=== PATIENT | male | born 1995 | race Caucasian/White ===

== ENCOUNTER 2017-12-26 14:52 | Observation (INO) | payer OTHER ==
--- NOTE | 2017-12-26 15:31 | EDPHY ---
H & P Time Seen by Provider: 12/26/17 15:03 HPI/ROS: CHIEF COMPLAINT: "I feel foggy" HISTORY OF PRESENT ILLNESS: Patient is brought in by his father from his primary care's office. The father says that the patient has been"disengage from [employer]"over the last week. 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 Yesterday the patient wants to "clean himself out"and drink 18 oz of medium chain triglyceride oil at home. The father does say he has had a history of using marijuana for on and off for many years and when he does that he is"susceptible to psychosis"but the patient denies any drug use over the last month. Patient says he just feels slow to respond but denies hallucinations or hearing voices and denies recent drug use. REVIEW OF SYSTEMS: Eye: no change in vision ENT: no sore throat. He lost hearing in his right ear back in May and wears a hearing aid but no changes there. Cardiac: no chest pain or syncope Pulmonary: no cough or SOB Abdomen: Patient is had chronic abdominal pain for at least the last 2-3 years worse in the morning which is unchanged today. Musculoskeletal: no back pain Skin: no rash Neuro: no headache Constitutional: no fever : no urinary symptoms A comprehensive 10 point review of systems is otherwise negative aside from elements mentioned in the history of present illness. PAST MEDICAL HISTORY: Negative Family history: History of schizophrenia in his mother's brother Social history: Occasional marijuana use. General Appearance: Patient is alert and cooperative Eyes: No scleral icterus. Pupils equal and reactive extraocular motion intact. ENT, Mouth: Normal mucous membranes. No tongue laceration or abrasion, hearing aid in the right ear. Respiratory: Normal respiratory effort, breath sounds equal, lungs are clear to auscultation. Cardiovascular: Regular rate and rhythm. Gastrointestinal: Abdomen is soft and non tender. Neurological: Alert, face symmetric, normal motor and sensory in extremities. Patellar reflexes 1+ and symmetric, toes downgoing bilaterally, no clonus. Is able to respond appropriately to questions but does seem a bit slow. Not aphasic. Skin: Warm and dry, no rashes. Musculoskeletal: No peripheral edema. Neck supple. Psychiatric: Flat affect. Denies hallucinations. Emergency Department course/MDM: CBC, chemistries, ethanol and drug screen. Noncontrast CT head with probable recommended lumbar puncture if negative. If all tests are negative recommend psychiatric evaluation. 1635: Results discussed with patient father and stepmother, LP discussed and consented. Neurology consulted. 165: Lumbar puncture completed, IV fluids infusing. 170: Discussed with neurology Wheatley. 1944: Re-evaluated with parents. Admit for evaluation of encephalopathy, is not acutely psychotic in the emergency department although mental illness as a primary diagnosis is considered and discussed with the parents. Smoking Status: Never smoked Constitutional: Initial Vital Signs Temperature (C) 36.7 C 12/26/17 14:53 Heart Rate 88 12/26/17 14:53 Respiratory Rate 16 12/26/17 14:53 Blood Pressure 129/78 H 12/26/17 14:53 O2 Sat (%) 97 12/26/17 14:53 O2 Delivery Mode Room Air Allergies/Adverse Reactions: sulfamethoxazole [From Septra] Allergy (Verified 08/07/10 02:16) trimethoprim [From Septra] Allergy (Verified 08/07/10 02:16) Home Medications: Medication Instructions Recorded NK [No Known Home Meds] 12/26/17 Medical Decision Making - Diagnostics Imaging Results: Imaging Impressions Head CT 12/26/17 15:28 Impression: 1. Normal CT brain without contrast. 2. Consider MRI of the brain, if there is continued clinical concern. Findings and recommendations discussed with Emergency Department physician, Facundo Mendoza at 1550 hour, 12/26/2017. Final report concurs with initial preliminary interpretation. normal head Ct per Isuani, 1551 Imaging: Discussed imaging studies w/ calliope player Radiologist Procedures: Procedure: Lumbar puncture. Indication: Altered mental status Risks benefits and alternatives to the procedure were discussed including but not limited to infection, headache, bleeding, and neurologic damage. Consent was obtained. The patient was prepped and draped in the usual sterile fashion. A time out was completed. The entry site was anesthetized with 1% lidocaine and a lumbar puncture was performed with a 23-gauge spinal needle. Approximately 4 mL of clear fluid was obtained. Opening pressure was not obtained. There were no complications. The procedure was performed by myself. Differential Diagnosis: Differential considered including but not limited to schizophrenia, drug or alcohol ingestion, metabolic, ASSISTANT TEACHING PROFESSOR infection, intracranial mass. Consult/Admit Bed Type: [place] [id number] - Data Points Laboratory Results: Laboratory Results 12/26/17 15:40 12/26/17 15:40 12/26/17 12/26/17 12/26/17 16:52 15:40 15:40 WBC RBC Hgb Hct MCV MCH MCHC RDW Plt Count MPV Neut % (Auto) Lymph % (Auto) Green % (Auto) Eos % (Auto) Baso % (Auto) Nucleat RBC Rel Count Absolute Neuts (auto) Absolute Lymphs (auto) Absolute Monos (auto) Absolute Eos (auto) Absolute Basos (auto) Absolute Nucleated RBC Immature Gran % Immature Gran # Sodium 143 mEq/L mEq/L (135-145) Potassium 4.4 mEq/L mEq/L (3.3-5.0) Chloride 106 mEq/L mEq/L (97-110) Carbon Dioxide 19 mEq/l L mEq/l (22-31) Anion Gap 18 mEq/L H mEq/L (8-16) BUN 18 mg/dL mg/dL (7-23) Creatinine 1.1 mg/dL mg/dL (0.7-1.3) Estimated GFR > 60 Glucose 73 mg/dL mg/dL (70-100) Calcium 9.9 mg/dL mg/dL (8.5-10.4) TSH 0.989 uIU/mL uIU/mL (0.465-4.680) CSF Tube Number 4 CSF Appearance CLEAR (CLEAR) CSF Color COLORLESS (COLORLESS) CSF Supernatant COLORLESS (COLORLESS) CSF WBC 0 /mm3 /mm3 (0-5) CSF RBC 1 /mm3 H /mm3 (0-0) CSF Glucose 50 mg/dL mg/dL (50-75) CSF Total Protein 45 mg/dL mg/dL (12-60) Ethyl Alcohol < 10 mg/dL mg/dL (0-10) 12/26/17 15:40 WBC 7.08 10^3/uL 10^3/uL (3.80-9.50) RBC 6.49 10^6/uL H 10^6/uL (4.40-6.38) Hgb 19.2 g/dL H g/dL (13.7-17.5) Hct 55.5 % H % (40.0-51.0) MCV 85.5 fL fL (81.5-99.8) MCH 29.6 pg pg (27.9-34.1) MCHC 34.6 g/dL g/dL (32.4-36.7) RDW 12.4 % % (11.5-15.2) Plt Count 309 10^3/uL 10^3/uL (150-400) MPV 10.2 fL fL (8.7-11.7) Neut % (Auto) 63.8 % % (39.3-74.2) Lymph % (Auto) 27.3 % % (15.0-45.0) Green % (Auto) 6.9 % % (4.5-13.0) Eos % (Auto) 0.7 % % (0.6-7.6) Baso % (Auto) 1.0 % % (0.3-1.7) Nucleat RBC Rel Count 0.0 % % (0.0-0.2) Absolute Neuts (auto) 4.52 10^3/uL 10^3/uL (1.70-6.50) Absolute Lymphs (auto) 1.93 10^3/uL 10^3/uL (1.00-3.00) Absolute Monos (auto) 0.49 10^3/uL 10^3/uL (0.30-0.80) Absolute Eos (auto) 0.05 10^3/uL 10^3/uL (0.03-0.40) Absolute Basos (auto) 0.07 10^3/uL 10^3/uL (0.02-0.10) Absolute Nucleated RBC 0.00 10^3/uL 10^3/uL (0-0.01) Immature Gran % 0.3 % % (0.0-1.1) Immature Gran # 0.02 10^3/uL 10^3/uL (0.00-0.10) Sodium Potassium Chloride Carbon Dioxide Anion Gap BUN Creatinine Estimated GFR Glucose Calcium TSH CSF Tube Number CSF Appearance CSF Color CSF Supernatant CSF WBC CSF RBC CSF Glucose CSF Total Protein Ethyl Alcohol Microbiology Results: MICROBIOLOGY 12/26/17 16:52 Cerebral Spinal Fluid Gram Stain - Final Medications Given: Discontinued Medications Sodium Chloride (Ns) 1,000 mls @ 0 mls/hr IV EDNOW ONE; Wide Open PRN Reason: Protocol Stop: 12/26/17 16:38 Last Admin: 12/26/17 16:39 Dose: 1,000 mls Sodium Chloride (Ns) 1,000 mls @ 0 mls/hr IV EDNOW ONE; Wide Open PRN Reason: Protocol Stop: 12/26/17 16:38 Last Admin: 12/26/17 17:41 Dose: 1,000 mls Departure - Departure Disposition: [facility] Clinical Impression: Encephalopathy acute Condition: Fair
[2017-12-26 16:04] LABS: PLATELET COUNT 309 10^3/uL (150-400)
[2017-12-26] MEDS ORDERED: NS 1,000 ML IV ONE ×2 (16:37)
[2017-12-26] MEDS ORDERED: NS 1,000 ML IV SCH (18:45)
--- NOTE | 2017-12-26 23:15 | PDGENHP ---
History and Physical - Chief Complaint Acute weakness - History of Present Illness Primary care provider: Dr. Jules Escoto HPI: 22-year-old male presenting with acute weakness characterized as generalized by the patient, with associated fatigue and cramping abdominal discomfort and nausea. The patient reports that on the morning of presentation , he awoke with these symptoms, and they came to the attention of his parents who brought him to his primary care provider office. As the etiology of the symptoms was unclear, he was triaged to the emergency department given that the patient's father felt like he was unsteady on his feet, visibly fatigued, and appeared to be cognitively not at his baseline. The patient is unable to articulate any cognitive symptoms, but the patient's father and stepmother insert that the patient appears "foggy", with delayed speech, flat affect, poor responsiveness. When questioned about the symptoms, the patient agrees that he may be experiencing them, but he is unable to further articulate whether they are actually bothering him. His father reports that he experiences poor sleep, although the patient has not taken any medications to attempt to sleep and is unable to articulate anything specific about his sleep habits. He does endorse that he feels somewhat depressed, lb he feels like he is justifiable a so, as he reports that he engages in no pleasurable activities and "sits all day" in his apartment purposelessly. The patient's presenting symptoms do require some delineation. Regarding his cramping abdominal discomfort and nausea, the patient has been experiencing this since age 15. He reports that onset is mostly in the morning, and mostly abates throughout the day. It sometimes affects his oral intake in the morning , but he has not discovered a particular remedy. He is unable to associate with any particular symptoms of diarrhea or constipation, and he does not seem to be particularly plagued by vomiting. He did undergo an abdominal CT in 2009 which was demonstrative of no abnormalities. He has not officially seen a medical provider for a formal workup. Regarding the patient's energy and cognitive status, the patient's father has noted a particular decline over the past several weeks. 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 His father has noted episodes depression, but no suicidal ideation or attempts. These episodes were also self-limited and did not warrant medical attention. The patient has not had any manic episodes. The patient has always been very particular about certain things, such as foods and schedules. He reportedly does better with structure and routine. The patient does use marijuana every few weeks, and his father reports that it "does not agree with him", resulting in significant paranoia. Approximately 4 weeks ago, the patient began experiencing difficulty with his clinical athletic instructor schedule, and began missing some of the classes he was supposed to teach, secondary to was reported as an irregular schedule. The patient also reports that he has had difficulty with yoga secondary to the hearing loss in his right year, which was diagnosed as idiopathic after an extensive workup at [facility] in May of 2017. The patient was reportedly placed on probation at his workplace, and then was eventually let go. After the patient stopped working, he began self isolating in his apartment, reportedly engaging in very minimal activities outside of his apartment space. The patient reports that he naturally feels depressed as a result of having nothing to do, at age 22, and he reports that he just sits in his apartment most of the day. He has been doing so for the past several weeks, and his father reports that he has not been answering his phone calls or e-mail. That being said, prior to the patient's precipitous decline, he had attempted to find work at a local business, and had reportedly been excited about the job prospect. His father reports that this job seemingly did not materialize secondary to the patient losing interest in communicating with the employer or engaging in any additional follow-up. History Information - Allergies/Home Medication List Allergies/Adverse Reactions: sulfamethoxazole [From Septra] Allergy (Verified 08/07/10 02:16) trimethoprim [From Septra] Allergy (Verified 08/07/10 02:16) Home Medications: NK [No Known Home Meds] 12/26/17 [Last Taken Unknown] I have personally reviewed and updated: family history, medical history, social history, surgical history - Past Medical History Additional medical history: Idiopathic hearing loss in his right year May of 2017, underwent extensive evaluation at [facility]. Intermittent episodes of depression. Chronic abdominal pain since age 15. Intermittent polyarthralgias - Surgical History Reports: no pertinent surgical hx - Family History Additional family history: Father reports chronic abdominal symptoms, reports IgA deficiency. 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, recently lost his job and has become self isolated Review of Systems Review of Systems: ROS: 10pt was reviewed & negative except for what was stated in HPI & below Constitutional: Reports: malaise, weakness Muscolosketal: Reports: other (Poly arthralgias) Neurological: Reports: other (Thought blocking, cognitive slowing, depression) Physical Exam Physical Exam: Temp Pulse Resp BP Pulse Ox 36.4 C 54 L 16 117/68 96 12/26/17 21:00 12/26/17 21:00 12/26/17 21:00 12/26/17 21:00 12/26/17 21:00 Constitutional: no apparent distress, appears nourished, not in pain, No uncomfortable Eyes: anicteric sclera, EOMI, other (Appropriately dilated pupils) Ears, Nose, Mouth, Throat: no oral mucosal ulcers, other (Tacky mucous membranes ) Cardiovascular: regular rate and rhythym, no murmur, rub, or gallop, No edema Respiratory: no respiratory distress, no rales or rhonchi, clear to auscultation Gastrointestinal: normoactive bowel sounds, soft, non-tender abdomen, no palpable masses Genitourinary: no bladder fullness, no bladder tenderness Skin: warm, No abrasion, No erythema, No rash Musculoskeletal: full muscle strength, no muscle tenderness, normal joint ROM, no joint effusions Neurologic: AAOx3, sensation intact bilaterally, CN II-XII Intact, No weakness, No facial droop Psychiatric: not anxious, depressed, flat affect, poor memory, other (Evidence of thought blocking, slowed cognitive processes), No agitated Lab Data & Imaging Review 12/26/17 15:40 12/26/17 15:40 WBC 7.08 10^3/uL (3.80-9.50) 12/26/17 15:40 RBC 6.49 10^6/uL (4.40-6.38) H 12/26/17 15:40 Hgb 19.2 g/dL (13.7-17.5) H 12/26/17 15:40 Hct 55.5 % (40.0-51.0) H 12/26/17 15:40 MCV 85.5 fL (81.5-99.8) 12/26/17 15:40 MCH 29.6 pg (27.9-34.1) 12/26/17 15:40 MCHC 34.6 g/dL (32.4-36.7) 12/26/17 15:40 RDW 12.4 % (11.5-15.2) 12/26/17 15:40 Plt Count 309 10^3/uL (150-400) 12/26/17 15:40 MPV 10.2 fL (8.7-11.7) 12/26/17 15:40 Neut % (Auto) 63.8 % (39.3-74.2) 12/26/17 15:40 Lymph % (Auto) 27.3 % (15.0-45.0) 12/26/17 15:40 [place] % (Auto) 6.9 % (4.5-13.0) 12/26/17 15:40 Eos % (Auto) 0.7 % (0.6-7.6) 12/26/17 15:40 Baso % (Auto) 1.0 % (0.3-1.7) 12/26/17 15:40 Nucleat RBC Rel Count 0.0 % (0.0-0.2) 12/26/17 15:40 Absolute Neuts (auto) 4.52 10^3/uL (1.70-6.50) 12/26/17 15:40 Absolute Lymphs (auto) 1.93 10^3/uL (1.00-3.00) 12/26/17 15:40 Absolute Monos (auto) 0.49 10^3/uL (0.30-0.80) 12/26/17 15:40 Absolute Eos (auto) 0.05 10^3/uL (0.03-0.40) 12/26/17 15:40 Absolute Basos (auto) 0.07 10^3/uL (0.02-0.10) 12/26/17 15:40 Absolute Nucleated RBC 0.00 10^3/uL (0-0.01) 12/26/17 15:40 Immature Gran % 0.3 % (0.0-1.1) 12/26/17 15:40 Immature Gran # 0.02 10^3/uL (0.00-0.10) 12/26/17 15:40 Sodium 143 mEq/L (135-145) 12/26/17 15:40 Potassium 4.4 mEq/L (3.3-5.0) 12/26/17 15:40 Chloride 106 mEq/L (97-110) 12/26/17 15:40 Carbon Dioxide 19 mEq/l (22-31) L 12/26/17 15:40 Anion Gap 18 mEq/L (8-16) H 12/26/17 15:40 BUN 18 mg/dL (7-23) 12/26/17 15:40 Creatinine 1.1 mg/dL (0.7-1.3) 12/26/17 15:40 Estimated GFR > 60 12/26/17 15:40 Glucose 73 mg/dL (70-100) 12/26/17 15:40 Calcium 9.9 mg/dL (8.5-10.4) 12/26/17 15:40 TSH 0.989 uIU/mL (0.465-4.680) 12/26/17 15:40 CSF Tube Number 4 12/26/17 16:52 CSF Appearance CLEAR (CLEAR) 12/26/17 16:52 CSF Color COLORLESS (COLORLESS) 12/26/17 16:52 CSF Supernatant COLORLESS (COLORLESS) 12/26/17 16:52 CSF WBC 0 /mm3 (0-5) 12/26/17 16:52 CSF RBC 1 /mm3 (0-0) H 12/26/17 16:52 CSF Glucose 50 mg/dL (50-75) 12/26/17 16:52 CSF Total Protein 45 mg/dL (12-60) 12/26/17 16:52 Urine Opiates Screen NEGATIVE (NEGATIVE) 12/26/17 18:30 Urine Barbiturates NEGATIVE (NEGATIVE) 12/26/17 18:30 Ur Phencyclidine Scrn NEGATIVE (NEGATIVE) 12/26/17 18:30 Ur Amphetamine Screen NEGATIVE (NEGATIVE) 12/26/17 18:30 U Benzodiazepines Scrn NEGATIVE (NEGATIVE) 12/26/17 18:30 Urine Cocaine Screen NEGATIVE (NEGATIVE) 12/26/17 18:30 U Marijuana (THC) Screen NON-NEGATIVE (NEGATIVE) H 12/26/17 18:30 Ethyl Alcohol < 10 mg/dL (0-10) 12/26/17 15:40 Visualized and Interpreted imaging results: Yes Interpretation: No abnormalities on head CT Assessment & Plan Assessment: 22-year-old male presents with acute cognitive impairment secondary to suspected underlying depression Plan: 1. Cognitive impairment and depressed mood. Acute, new problem this provider, further workup indicated. Although the patient presents with some chronic abdominal symptoms and generalized weakness, the patient's most profound symptom is his cognitive impairment which includes 1 thought blocking, delayed responsiveness, flat affect, depressed mood, loss of pleasurable activities, self isolating behavior, poor sleep -I suspect the patient has an undiagnosed mood disorder, possibly severe episodic depression, resulting in the above -discussed with Dr. Facundo Mendoza in the emergency department, he has discussed the patient with Neurology, who have nothing further to suggest now the patient has had a normal lumbar puncture, normal head CT -I have discussed with [facility] coordinator, and requested a psychiatrist consultation for tomorrow, will appreciate their input as to whether this patient has an undiagnosed mood disorder and requires additional mood stabilization -get LETTER CARRIER cognitive evaluation -TSH normal, tox screen negative except for THC as reported, no further serologic tests indicated -have offered the patient melatonin tonight for sleep 2. Abdominal pain. Chronic, reviewed outside records including 06/16/2010 CT of the abdomen read by Dr. Primo Mcneill, as completely normal -I suspect the cause of the patient's abdominal symptoms are more of an irritable bowel syndrome, although the patient has not received formal outpatient workup for his symptoms and IBS is a diagnosis of exclusion -consequently, will rule out inflammatory disorder with sed rate, CRP -his father is requesting an IgA level test, but I would recommend the patient have IgA level as well as an evaluation for celiac disease and additional GI workup performed at the gastroenterology office so that the test can be followed up and there is no duplication in evaluation -symptoms are currently controlled, did not require any as needed medications 3. Polyarthralgias and generalized weakness. Chronic, patient currently does not articulate any specific joints which are bothering him, will check respiratory viral panel to ensure the patient is not experiencing a systemic viral syndrome which could otherwise be resulting in some poly arthralgias and fatigue -checking inflammatory markers as above -get physical and occupational therapy determine whether patient is safe discharge home 4. Metabolic acidosis. Acute, most likely secondary to poor oral intake in the setting of depressed mood and poor motivation for oral intake -give IV normal saline, repeat serum chemistry in a.m. Diet. Encourage oral intake Prophylaxis. High risk patient given poor energy, if immobile Lovenox 40 Code. Full Disposition. Anticipated discharge 12/27, status post psychiatry evaluation as outlined above.
[2017-12-26] MEDS: MELATONIN 3 MG TAB PO SCH ×2 (23:38→23:39)
[2017-12-27 05:50] LABS: CREATINE KINASE 28 IU/L (0-224)
[2017-12-27 05:57] LABS: PLATELET COUNT 234 10^3/uL (150-400)
[2017-12-27] MEDS ORDERED: ENOXAPARIN 40 MG/0.4 ML SYR SC SCH (09:00)
[2017-12-27] MEDS ORDERED: LORazepam 1 MG TAB PO PRN (13:04)
--- NOTE | 2017-12-27 17:15 | ASMTCASEMG ---
Living Arrangements What is your living Answers: Alone arrangement? Who do you live with? Type Of Residence What kind of residence do Answers: Apartment you live in? Discharge Plan Comments Coordination Status Comments Notes: Pt is a 22 y/o male admitted for acute weakness. Psychiatry has been consulted. Dr. Gillis will be consulting on this case. Needs are TBD at this time. CM to follow. Plan: TBD Date Signed: 12/27/2017 04:00 PM Electronically Signed By:SHIKHA Dunn
--- NOTE | 2017-12-27 17:56 | GCON ---
[f rep st] CONSULTATION NEUROLOGY CONSULTATION REFERRING PHYSICIAN: Dr. Kacie Price CHIEF COMPLAINT: Abdominal pain and fatigue. HISTORY OF PRESENT ILLNESS: The patient is a very pleasant 22-year-old gentleman who has a 5 or 6-year history of abdominal discomfort. He also has a history of childhood depression or some type of mood disorder, the diagnosis is unclear. He has seen litigation specialist in the past. 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 He was his usual bright self at the end of November, but in the last few weeks when his parents had not seen him, there apparently was a change. He is more lethargic and slower in his speech without any focal neurologic symptoms or signs, no aphasia or dysarthria. He did have an MRI brain in May at when he had some unexplained hearing loss on the right, which was apparently normal (per family report). The patient himself is primarily concerned about his stomach discomfort and fatigue. He may feel more depressed than usual. No suicidal or homicidal ideation. No seizures. No constitutional symptoms. He was seen by his primary care physician for ongoing symptoms, who sent him to the ED. He had a head CT without contrast yesterday in the emergency department, which was read as entirely normal. I looked at these images myself. He had a lumbar puncture which showed 0 white cells, glucose 50, and total protein of 45. He had a tox screen which was positive for marijuana. He told me he used cannabis last 2-3 weeks ago. He denies any other recreational drugs. For past medical history, social history, family history, allergies, and home medications please see Dr. Alexander's H and P. PHYSICAL EXAM: VITAL SIGNS: Blood pressure 110/63, temperature 36.9, heart rate 65 and regular, respirations 16. GENERAL: The patient is awake and alert , in no acute distress. He has a flat affect. CRANIAL NERVES: Normal 2 through 7. 11 and 12 cranial nerves are normal as well. MOTOR: Normal strength, tone and reflexes throughout. Toes are downgoing bilaterally. SENSORY: Normal to light touch in all 4 extremities. No extinction. COORDINATION: Normal in upper and lower extremities with [id number]-[id number]-[id number] and [id number]-dh-gbhe bilaterally. In summary, there are no focal neurologic findings. There was some mild psychomotor slowing in his speech most prominently, but there was no motor, speech or language abnormalities on formal exam or in conversation. IMPRESSION AND PLAN: 1. Chronic abdominal discomfort 2. Fatigue. The patient's constellation of symptoms are unclear. Certainly, there may be some depression that is present. He did apparently have an alerting effect with a single dose of Ativan, raising the possibility of a catatonic type depression. Psychiatry will be seeing him a little later this afternoon. We appreciate their help. From my standpoint, there is no evidence of an acute or ongoing neurogenic process at this time. His head CT and negative lumbar puncture are reassuring. His exam is also normal in terms of the lack of focality on exam currently. If there is no need for inpatient psychiatry, then I would recommend discharge home with close outpatient followup. I would also recommend he follow up with outpatient Internal Medicine at the [facility], so he can have a multidisciplinary approach there. They are agreeable to the plan. He did have an MRI brain in May when he had some unexplained hearing loss on the right, which was apparently normal. When they follow up with the [facility], certainly they will have access to imaging. No further recommendations. We will sign off and follow up p.r.n. Please do not hesitate to call if there are any questions or changes in this very pleasant patient's neurologic status. Seventy total minutes floor time, reviewing records, both inpatient and outpatient imaging, counseling the patient and coordination of care. /[id number]/MODL MTDD
[2017-12-27 19:48] VITALS: BP 120/69
[2017-12-27] MEDS: MELATONIN 3 MG TAB PO SCH (21:12)
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
--- NOTE | 2017-12-28 00:27 | GDS ---
[f rep st] DISCHARGE SUMMARY DISCHARGE DIAGNOSES: 1. Catatonic depression. 2. Chronic abdominal pain. 3. Polyarthralgias. HISTORY: The patient is a 22-year-old male who presents with cognitive slowing and had a neuro exami nation that was negative including a head CT, a lumbar puncture, and an inpatient neurology consultat ion with Dr. Wheatley. He also complains of some abdominal pain, although that has been going on since ag e 15, and some polyarthralgias although his sedimentation rate is 1, suggesting against an inflammato ry arthritis. Further working with the patient and his family, the diagnosis was felt to lean more t oward catatonic depression. He was given empiric dose of Ativan which is known to have a paradoxical reaction in catatonic depression, and he perked up quite a bit after the Ativan, which is consistent with that diagnosis. He was seen in consultation with Dr. Casandra Gillis who was recommending an M1 h old as he is gravely disabled, and inpatient admission at [facility]. Plan is for hi m to go there this evening. DISCHARGE MEDICATIONS: Please see computerized record for full detailed list. There are no new medi cations at time of hospital discharge. ADDITIONAL DISCHARGE INSTRUCTIONS: 1. Outpatient workup for abdominal pain and polyarthralgias. There is no need for the patient to be an inpatient for this workup. 2. Transfer to [facility] for inpatient management of catatonic depression. Greater than 30 minutes' time spent arranging this discharge. Patient seen and examined by me on the day of discharge. /[id number]/MODL
== END 2017-12-27 21:00 ==
LOC: F3E 21:10
PROVIDERS: ADMIT Internal Medicine; ATTEND Internal Medicine
DX: F06.1 Catatonic disorder due to known physiological condition (principal); F32.9 Major depressive disorder, single episode, unspecified; R10.9 Unspecified abdominal pain
CPT/HCPCS: 70450; 90791; 92523; 97161; G0378; 80305; G0480; J1650

== ENCOUNTER 2017-12-27 21:20 | Inpatient (IN) | payer OTHER ==
[2017-12-27] MEDS ORDERED: ACETAMINOPHEN 325 MG TAB PO PRN (22:00)
[2017-12-27] MEDS ORDERED: NICOTINE POLACRILEX 2 MG GUM B PRN (22:00)
[2017-12-27] MEDS ORDERED: MAG HYDROX/AL HYDROX/SIMETH 30 ML UDCUP PO PRN (22:00)
[2017-12-27] MEDS ORDERED: OLANZapine 5 MG TAB PO PRN (22:01)
--- NOTE | 2017-12-28 14:42 | BCON ---
[f rep ] BEHAVIORAL [facility] CONSULTATION INTERNAL MEDICINE CONSULTATION DATE OF CONSULTATION: 12/28/2017 REFERRING PHYSICIAN: Casandra Gillis MD REASON FOR REFERRAL: Medical clearance for inpatient behavioral [facility] stay. HISTORY OF PRESENT ILLNESS: This patient was admitted from [facility] where he had been evaluated for encephalopathy. 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 Evaluation in the hospital included a head CT and a lumbar puncture, both of which were nondiagnostic, and it was suspected that he had a depression with catatonic features. He was transferred to inpatient [facility] for further psychiatric care. Currently, he complains of abdominal discomfort. He says this has been going on for months or years. He initially reports normal appetite, but subsequently says that he does not really want much of anything in his stomach. PAST MEDICAL HISTORY: He denies any history of any medical illnesses. PAST SURGICAL HISTORY: He has had no surgeries. MEDICATIONS: He was on no medications. ALLERGIES: Listed to sulfamethoxazole and to trimethoprim. SOCIAL HISTORY: He lives alone. 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 He is a nonsmoker and does not use alcohol. He uses marijuana, and his urine toxicology screen was positive for THC. FAMILY HISTORY: His father has a history of an IgA deficiency and otherwise in his family, there is a history of addiction and mental illness. REVIEW OF SYSTEMS: He reports abdominal discomfort. He reports he does not want to put anything in his stomach and he thinks he may have had some weight loss. Otherwise, he denies pain, cough, dyspnea, nausea, vomiting, constipation , or diarrhea. He says he has some joint pain and stiffness and that has been there for a few days. He denies any recent unusual activities. Otherwise, a 10 -point review of systems is negative. PHYSICAL EXAM: VITAL SIGNS: Blood pressure is 130/58. Heart rate is 91. Respiratory rate is 16. Oxygen saturation is 98% on room air. Temperature is 36.3 degrees centigrade. His weight is 68 kg for a body mass index of 22.2. His most recent prior weight in the chart from 2013 was 74 kg. GENERAL: This is a well-nourished, well-developed man, appears his chronologic age, cooperative, and in no acute distress, sitting up on the bed, dressed in a green hospital smock. HEENT: Extraocular movements are intact. Pupils are equal , round, and reactive to light. Mucous membranes are moist. Dentition is in good condition. He has an uncrowded airway, Mallampati class 1. NECK: Supple. HEART: There is regular rate and rhythm with no murmurs, rubs, or gallops. LUNGS: Clear to auscultation bilaterally. ABDOMEN: Soft, nontender , nondistended, somewhat scaphoid with normoactive bowel sounds and a palpable aortic pulse. EXTREMITIES: There is no cyanosis, clubbing, or edema. NEUROLOGIC: He is alert and oriented x3. He has slow processing, though he appears to have intact attention. Cranial nerves 2-12 are grossly intact. There is no focal weakness, and sensation is intact to light touch. LABORATORY STUDIES: Drawn during his recent hospitalization. Initially, he appeared to have some hemoconcentration on CBC with a hemoglobin and hematocrit elevated at 19.2 and 55.5. Subsequently yesterday, his CBC was completely normal. Erythrocyte sedimentation rate was normal at 1. Serum chemistry revealed overall normal renal function, electrolytes, and liver functions. TSH was normal at 0.989. Cerebrospinal fluid from lumbar puncture was unremarkable. Toxicology screen in the serum was negative for ethyl alcohol and the urine was non-negative for marijuana, but negative for other substances of abuse. ASSESSMENT/RECOMMENDATIONS: 1. 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 Pending further evaluation and management per Psychiatry and the mental health team. 2. Abdominal pain. This is chronic. He has Maalox ordered. Advise observing for normal food and fluid intake. If his nutritional intake is markedly decreased, especially as his psychiatric state stabilizes, this would merit further evaluation. Would consider an abdominal CT to rule out anything on a macro scale or consider a referral to Gastroenterology. I see no medical contraindications to this patient's continued stay in the inpatient behavioral health unit or to any psychiatric medications or procedures. Thank you very much for including me in the care of this patient and please do not hesitate to contact me or the hospitalist service should there be a need for further medical evaluation. /[id number]/MODL MTDD
--- NOTE | 2017-12-28 16:55 | SOAPPROG ---
SOAP Progress Note Assessment/Plan: Assessment: Plan: 12/28/17 16:54 Will monitor at this time, evaluate possibility of catatonia. Subjective: Pt seen, discussed with staff, chart reviewed including Dr. Gillis' consultation note. I need to talk to pt's family. He is not able to process effectively at this time. Definitely see possible catatonia. Refuses all meds inc: further Ativan. Full note to follow after obtaining more complete hx. Objective: Vital Signs Temp Pulse Resp BP Pulse Ox 36.3 C 91 16 130/58 H 98 12/28/17 06:00 12/28/17 06:00 12/28/17 06:00 12/28/17 06:00 12/28/17 06:00 - Time Spent With Patient Time Spent With Patient: 35" ICD10 Worksheet Patient Problems: Problems Problem Status Onset Encephalopathy acute Acute
[2017-12-29] MEDS: LORazepam 0.5 MG TAB PO PRN ×4 (08:16→22:40)
--- NOTE | 2017-12-29 17:34 | BAPA ---
[f rep st] ADMISSION PSYCHIATRIC ASSESSMENT DATE OF SERVICE: 12/28/2017 REASON FOR ADMISSION: Patient is a 22-year-old male with no previous history of serious psychiatric problems, who presented to the hospital with his parents due to a number of physical and mental issues. Dr. Gillis saw the patient in consultation on the medical floor where he was being worked up for GI complaints and possible encephalopathy on 12/27/2017, and I would refer the reader to her extensive consultation of that date. In summary, he had had a decline in which he was having numerous physical symptoms including diffuse pain , diffuse weakness, GI upset, and abdominal pain and change in his overall cognition. His roommates and his parents noticed that he was essentially just not himself and brought to the hospital, concerned there may be some systemic process. He was admitted to the medical service to evaluate this and also received neurology consult by Dr. Wheatley, and no identifiable cause was determined. He received a full and extensive medical workup including a CT of the head and lumbar puncture and had had a previous MRI of the head in May of last year, all of which were negative. Patient was ultimately diagnosed with catatonia by Dr. Gillis and transferred to the Behavioral Health Services unit for further evaluation due to grave disability. I initially evaluated the patient on 12/28/2017, on his arrival to the unit but found him to be nonverbal and cataleptic. He was able to engage but was a poor historian, was unable to give any kind of a fluent history. He simply denied most of the symptoms I asked him based on the history given except for his abdominal discomfort which he stated persisted. When I asked him about some paranoia that was mentioned in regard to his roommates, he stated that was " just a misunderstanding." He was unable to offer any other useful information. I then scheduled a family meeting with his parents who were able to come the next morning, in which I was better able to understand the overall picture. His father and stepmother described that the patient had always functioned normally but then began using marijuana around the age of 20. They stated that he had become paranoid and what they described as "snarky" which was argumentative and irritable, especially with them. This led to discord in the household for some time, and they attempted to get him to limit his marijuana use as they linked this clearly to that. After a while, he did acquiesce, cut back, and then eventually quit using marijuana, and they stated that he improved dramatically. His stepmother stated that he was "the most wonderful rehana in the world to be around" after that point. She stated that she had not known him consistently over time to be as easy going and calm, as well as productive. His father corroborates this. In the fall, however, he suffered sudden hearing loss in his right ear, and his father states that this "yanked his dreams away from him." By this, he means that he was into music and was hoping to possibly incorporate this into some kind of a career, and when he became suddenly deaf in one ear, he felt like he was unable to pursue this. They had an extensive medical workup and it was described as an idiopathic loss that was not likely to return. The patient then became quite afraid that he was going to lose hearing in his other ear and made a statement to the effect that he would kill himself if he went completely deaf. His parents attempted to assure him that in less than 1% of the cases, these types of things occur in both ears, but he remained fairly desponded and described as depressed by his father. He then began using marijuana again in June of 2017 and almost immediately became more irritable, paranoid, and began fighting with his stepmother and father in their home again. Apparently on Laura, there was a big argument and the patient moved out to live with some friends in the community. After this, he apparently began using marijuana more heavily including dabbing and became paranoid. 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 This occurred in September, and between September and the time of his admission, the patient continued to decline further, being unable to work, spending most of his time in his room, and withdrawing. He continued to use marijuana, both smoking and dabbing, over this time, although the exact amounts are unclear. His parents state that by the time they brought him to the hospital, he seemed incoherent and unable to communicate and they were concerned he may have a systemic illness. PAST PSYCHIATRIC HISTORY: Significant for no previous psychiatric hospitalizations or treatment with psychotropic medications. He has had no history of violence or suicide attempts. ALLERGIES: Sulfa. CURRENT MEDICATIONS: None. PAST MEDICAL HISTORY: Significant only for some chronic functional GI problems his father describes as "like irritable bowel syndrome." He has no history of central nervous system disease or developmental problems. SOCIAL HISTORY: Patient is single. He lives currently with 4 roommates in a home in [place] which his parents believe is unhealthy by virtue of the quantity of marijuana that they use there. The patient is high school graduate. Did not attend college. 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 The patient has never been and has no dependents. His parents are , and his father has been remarried for some time and they live in [place]. His mother lives in [place] and is coming to town to be supportive. FAMILY HISTORY: Significant for several first-degree relatives on his mother's side with substance abuse issues and possible psychosis. SUBSTANCE ABUSE HISTORY: Patient's drug of choice is marijuana and he has been using a concentrated form so the exact amounts are unknown. ADMISSION LABORATORY: No additional labs were drawn. Labs from medical hospitalization reviewed, as were his studies, with no significant abnormalities noted. MENTAL STATUS EXAMINATION: A healthy-appearing male. He is rather disheveled, though is not malodorous. He is sitting on the edge of the bed holding his arms out in front of him in a cataleptic fashion when I first enter the room. He is staring ahead with decreased to absent eye blink and a flat affect. I director shopper marketing the doorway for several minutes unnoticed and then cross jail to him across the room and he still does not notice. When I director shopper marketing front of him, he does notice and immediately blinks and engages me. He speaks in short sentences and struggles to communicate effectively. It is difficult to evaluate his level of orientation at this time. He does not endorse any hallucinatory processes when asked directly. His attention and concentration appear to be impaired and there seems to be significant poverty of thought and delay in response. IMPRESSION: 1. Catatonia. 2. Possible depressive disorder, not otherwise specified. 3. Cannabis use disorder, severe. 4. Unemployment. 5. Family conflicts. Patient is a 22-year-old male who presents at this time with catatonia. He has improved with several doses of lorazepam, though he refuses this unless his parents are present. I was unable to convince him to take it myself, though when they arrived this morning, they were. After he took it, he did become much more conversant and fluent. The exact source of the catatonia is unknown, and he has no specific history of depression. This is something observed by Dr. Gillis that we may rule in or out, but cannabis is the more likely culprit in my view at this time. Given the presence of the catatonia, we will avoid use of all neuroleptics though could have to use an atypical such as Zyprexa if his psychosis worsens and/or he becomes aggressive. Monitor his ins and outs carefully and treat him with lorazepam primarily. PLAN: 1. Proceed medication-doan as above. 2. Consider ECT should his course fail or he become noncompliant with medications and worsen. 3. Will evaluate underlying substance use disorder, possible psychosis, and possible mood disorder as catatonia resolves. 4. Estimated length of stay is 10 to 14 days. /[id number]/MODL MTDD
[2017-12-30] MEDS: LORazepam 0.5 MG TAB PO PRN (06:48)
[2017-12-30] MEDS ORDERED: LORazepam 2 MG/ML INJ IM PRN (07:45)
[2017-12-30] MEDS ORDERED: OLANZapine 10 MG/2 ML VIAL IM PRN (07:45)
[2017-12-30] MEDS ORDERED: OLANZapine DISINTEGR 10 MG TAB PO ONE (08:00)
[2017-12-30] MEDS ORDERED: LORazepam 1 MG TAB PO ONE (08:00)
[2017-12-30] MEDS ORDERED: OLANZapine DISINTEGR 10 MG TAB PO PRN (10:49)
--- NOTE | 2017-12-30 10:54 | SOAPPROG ---
SOAP Progress Note Assessment/Plan: Assessment: Plan: 12/28/17 16:54 Will monitor at this time, evaluate possibility of catatonia. 12/30/17 10:54 Psychosis: Pt is more obviously psychotic at this time. Catatonic sx's have abated. I believe we must use Zyprexa due to severity of sx's and violent behaviors. Will monitor closely for return of catatonic sx's. If this continues to be a problem, will do ECT on an emergency basis if necessary. Will also schedule lorazepam at 2mg TID for anxiety, behaviors and catatonia. Subjective: Pt seen, discussed with staff at 0700. Events of early this morning noted. He remains in seclusion due to continued agitation. He is holding a towel over his right ear due to receiving messages from "helicopters" over the building. He speaks fluently but without meaning. States, "I'm just going to wait here until they show up." "I'm not sure what they want me to do." Unable to sit still, pacing in room. Did not sleep with lorazepam 3mg PO and olanzapine 10mg PO. Objective: Vital Signs Temp Pulse Resp BP Pulse Ox 36.3 C 136 H 14 114/72 95 12/30/17 06:00 12/30/17 06:00 12/30/17 06:00 12/30/17 06:00 12/30/17 06:00 MSE: Disheveled, agitated. Affect is constricted, appears anxious. Mood is not stated. TP is disorganized. TC reveals auditory hallucinations and response to internal stimuli. - Time Spent With Patient Time Spent With Patient: 25" ICD10 Worksheet Patient Problems: Problems Problem Status Onset Encephalopathy acute Acute
[2017-12-30] MEDS: LORazepam 0.5 MG TAB PO SCH ×2 (16:18→22:01)
[2017-12-31] MEDS ORDERED: OLANZapine 10 MG/2 ML VIAL IM PRN ×2 (07:45→09:00)
[2017-12-31] MEDS ORDERED: OLANZapine DISINTEGR 10 MG TAB PO PRN (07:45)
[2017-12-31] MEDS: LORazepam 0.5 MG TAB PO SCH ×4 (08:57→21:11)
--- NOTE | 2017-12-31 12:03 | SOAPPROG ---
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 1st psych admission 12/31/17 12:02 slept 13hr. out of seclusion yesterday afternoon, received total Ativan 3mg and Zyprexa 20mg due to agitation and psychosis. on interview, pt sitting upright on bed, in darkened room, staring at wall. appropriate eye contact and acknowledgment of MD during interview. speech slowed , deliberate, soft-spoken, articulate. mood "okay", affect blunted. delayed responses, but linear. no spontaneity. did not initially endorse AH when asked, but then reported AH were "95%" better when asked if AH improved from 1 day before. no further elaboration. denied clearly remembering events from day before. denied SI or thoughts to harm others. poor insight. does not think he needs, nor wants to take, any medications, "I'm not a fan of pills". denied physical complaints except feels physically "weak". Plan: pt informed this AM he would be continued on Emeds for another 24hrs, given level of agitation and psychosis requiring restraints and seclusion, and not out of seclusion even 24hrs, and continues with no insight and reports he does not want to take any oral medications. ativan 2mg held this am due to sleeping/sedation. next scheduled this afternoon for tid dosing. Continue 2mg PO/IM TID x 24hr. Will leave zyprexa as 10mg q6h prn TDDNTE 30mg, but use 5mg IM prn as Emed back up dose x 24hr. Encourage po fluids. Objective: Vital Signs Temp Pulse Resp BP Pulse Ox 36.4 C 50 L 14 115/65 97 12/31/17 06:00 12/31/17 06:00 12/31/17 06:00 12/31/17 06:00 12/31/17 06:00 - Time Spent With Patient Time Spent With Patient: 15 - Pending Discharge Pending Discharge Within 24 Hours: No Pending Discharge Within 48 Hours: No ICD10 Worksheet Patient Problems: Problems Problem Status Onset Encephalopathy acute Acute
[2017-12-31] MEDS: LORazepam 1 MG TAB PO SCH (14:08)
[2017-12-31] MEDS: LORazepam 2 MG/ML INJ IM SCH ×2 (16:41→21:10)
[2018-01-01] MEDS: LORazepam 2 MG/ML INJ IM SCH (07:48)
[2018-01-01] MEDS: LORazepam 0.5 MG TAB PO SCH ×3 (09:01→20:59)
--- NOTE | 2018-01-01 12:52 | SOAPPROG ---
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 1st psych admission 12/31/17 12:02 slept 13hr. out of seclusion yesterday afternoon, received total Ativan 3mg and Zyprexa 20mg due to agitation and psychosis. on interview, pt sitting upright on bed, in darkened room, staring at wall. appropriate eye contact and acknowledgment of MD during interview. speech slowed , deliberate, soft-spoken, articulate. mood "okay", affect blunted. delayed responses, but linear. no spontaneity. did not initially endorse AH when asked, but then reported AH were "95%" better when asked if AH improved from 1 day before. no further elaboration. denied clearly remembering events from day before. denied SI or thoughts to harm others. poor insight. does not think he needs, nor wants to take, any medications, "I'm not a fan of pills". denied physical complaints except feels physically "weak". Plan: pt informed this AM he would be continued on Emeds for another 24hrs, given level of agitation and psychosis requiring restraints and seclusion, and not out of seclusion even 24hrs, and continues with no insight and reports he does not want to take any oral medications. ativan 2mg held this am due to sleeping/sedation. next scheduled this afternoon for tid dosing. Continue 2mg PO/IM TID x 24hr. Will leave zyprexa as 10mg q6h prn TDDNTE 30mg, but use 5mg IM prn as Emed back up dose x 24hr. Encourage po fluids. 01/01/18 12:32 per staff, slept 7.5hr. Took Emeds by IM, preferred this to po. Received Ativan 2mg IM 2x yesterday in afternoon and HS, Emeds this AM. Staff reports pt has not been observed to take in any po food or fluids over last 24-48hrs, despite encouragement. Very minimal when does. Gives reason of just being "not thirsty." Continuing isolative. Discussed with ED plan to send to ER for labs and rehydration. On interview, pt noted sitting erect on side of bed, staring at wall. Turns head to acknowledge MD and respond to questions. Good eye contact, bearded, in hosp gowns, decr psychomotor activity, and slowed speech rate but articulate, fairly monotonous, no spontaneity. Brief responses, linear. Mood "okay", affect blunted. No overt delusions expressed. possibly with thought blocking. Denied AH /VH. no more helicopters beaming things into his head. denied thought insertion/ withdrawal or feeling others can read his thoughts. "my mind feels very strong" . denied SI or thoughts to harm others. i/j-both poor. A&O to "rehab for psychiatry", [facility], December 2017, but incorrect with "". Reports In discussing medications, pt reports he prefers IM to po and would continue with Ativan in this form b/c it helps him feel "less fogginess" mentally, also "helps with the comfortability in my joints." Family last PM during visiting hours also noted pt was more interactive in afternoon after medications than earlier in day prior to meds. Informed he would be sent to ER for IVF if no po intake. Pt reports not hungry, not thirsty. States he wouldn't mind if sent for IVF. Cannot recall last BM. c/o recurrent abdominal discomfort QAM he attributes to any po intake at night, "it feels like something is attacking my insides...like there's something that doesn't belong, corrosion..., feeling a hardness in my lower belly" but also reports abd complaints are chronic and overall decreased over past 6 mo. also has c/o arthralgias, none currently except some in hips. PLAN: ED for labs, rehydration Cont Ativan 2mg TID and prn zyprexa Talk with hospitalist during week about pt complaints. consider H.pylori. when pt was medically in hosp last week before inpt psych, it was discussed that pt has had chronic GI complaints with arthralgias and this would need to be worked up as outpatient. perhaps w/u could start as inpt psych. has hx of being sexually active, reports no hx of HIV test. Has prn for constipation avail if needed. 01/01/18 17:26 returned from ED. taking meds PO. no longer on emeds 1L IVF in ED, and was reported to be eating/drinking thereafter in ED so was d/ cd back parents did visit him there, brought smoothie and pt drank all. also has been eating remains isolative in room but parents visiting throughtout visiting hours seems steady slowly improving. cont ativan 2mg po tid. has not needed prn zyprexa since 12/30. Objective: Vital Signs Temp Pulse Resp BP Pulse Ox 36.6 C 52 L 15 106/59 L 98 01/01/18 06:00 01/01/18 09:00 01/01/18 06:00 01/01/18 06:00 01/01/18 06:00 12/31/17 01/01/18 01/02/18 05:59 05:59 05:59 Intake Total 0 Balance 0 - Time Spent With Patient Time Spent With Patient: 25min - Pending Discharge Pending Discharge Within 24 Hours: No Pending Discharge Within 48 Hours: No ICD10 Worksheet Patient Problems: Problems Problem Status Onset Encephalopathy acute Acute
[2018-01-02] MEDS: LORazepam 0.5 MG TAB PO SCH ×3 (08:47→21:23)
--- NOTE | 2018-01-02 16:32 | SOAPPROG ---
SOAP Progress Note Assessment/Plan: Assessment: Plan: 12/28/17 16:54 Will monitor at this time, evaluate possibility of catatonia. 12/30/17 10:54 Psychosis: Pt is more obviously psychotic at this time. Catatonic sx's have abated. I believe we must use Zyprexa due to severity of sx's and violent behaviors. Will monitor closely for return of catatonic sx's. If this continues to be a problem, will do ECT on an emergency basis if necessary. Will also schedule lorazepam at 2mg TID for anxiety, behaviors and catatonia. 01/02/18 16:35 Psychosis: Pt is doing much better compared to the severe psychosis demonstrated on Tuesday. Overall clinical picture remains unclear. Less evidence of catatonia today. Tolerated the Zyprexa on Tuesday without worsening of retarded sx's. Will continue lorazepam alone for now, monitor. If he continues to improve, will entertain plan to d/c to home. If he declines again will consider starting scheduled neuroleptic and monitoring for worsening of catatonic sx's. Subjective: Pt seen, discussed with staff, chart reviewed. He is lying in bed with blankets up to his neck. He makes good eye contact and interacts appropriately. More conversant today. Denies AH's or IOR. States, "I'm not hearing any of those things any more." He voices remorse for the events of Tuesday morning. He has remained calm since then with no aggression. He states , "You're the doctor, I'll do what you tell me." I mentioned the possibility of ECT and he states, "I'd be willing to do that if you recommend it." He remains hesitant to take lorazepam but is compliant with encouragement. Sleeping well since last night. Objective: Vital Signs Temp Pulse Resp BP Pulse Ox 36.6 C 75 16 118/69 96 01/02/18 06:00 01/02/18 06:00 01/02/18 06:00 01/02/18 06:00 01/02/18 06:00 01/01/18 01/02/18 01/03/18 05:59 05:59 05:59 Intake Total 360 Balance 360 MSE: Calm, coop. Interacts approp., good eye contact. Some delay in response , but able to generally track conversation. Affect is somewhat elevated, odd, though stable. Mood is "good." TP generally linear, delayed at times, slowed. TC reveals no obvious delusions. Denies AH's. - Time Spent With Patient Time Spent With Patient: 25" ICD10 Worksheet Patient Problems: Problems Problem Status Onset Encephalopathy acute Acute
[2018-01-03] MEDS: LORazepam 0.5 MG TAB PO SCH ×2 (09:02→09:54)
[2018-01-03] MEDS ORDERED: LORazepam 0.5 MG TAB PO SCH (09:06)
[2018-01-03] MEDS: LORazepam 1 MG TAB PO SCH ×3 (09:54→20:55)
--- NOTE | 2018-01-03 13:25 | SOAPPROG ---
SOAP Progress Note Assessment/Plan: Assessment: Possible otitis externa. Will treat with topical antibiotics/anti inflammatory X 3 days. Observe for resolution of symptoms. Will follow up in 2-3 days. 01/03/18 13:25 Subjective: Asked to see patient regarding irritation and his right ear. He has been noted to be poking at it. He denies pain or discomfort. 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 Objective: Vital Signs Temp Pulse Resp BP Pulse Ox 36.6 C 97 16 121/84 H 97 01/02/18 06:00 01/03/18 06:00 01/03/18 06:00 01/03/18 06:00 01/03/18 06:00 01/02/18 01/03/18 01/04/18 05:59 05:59 05:59 Intake Total 360 240 Balance 360 240 Physical Exam - Physical Exam General Appearance: WD/WN, alert, no apparent distress EENT: TM abnormal (R) (White discharge in external auditory canal. Tympanic membrane minimally visible, no erythema.) ICD10 Worksheet Patient Problems: Problems Problem Status Onset Encephalopathy acute Acute
--- NOTE | 2018-01-03 14:06 | SOAPPROG ---
SOAP Progress Note Assessment/Plan: Assessment: Plan: 12/28/17 16:54 Will monitor at this time, evaluate possibility of catatonia. 12/30/17 10:54 Psychosis: Pt is more obviously psychotic at this time. Catatonic sx's have abated. I believe we must use Zyprexa due to severity of sx's and violent behaviors. Will monitor closely for return of catatonic sx's. If this continues to be a problem, will do ECT on an emergency basis if necessary. Will also schedule lorazepam at 2mg TID for anxiety, behaviors and catatonia. 01/02/18 16:35 Psychosis: Pt is doing much better compared to the severe psychosis demonstrated on Tuesday. Overall clinical picture remains unclear. Less evidence of catatonia today. Tolerated the Zyprexa on Tuesday without worsening of retarded sx's. Will continue lorazepam alone for now, monitor. If he continues to improve, will entertain plan to d/c to home. If he declines again will consider starting scheduled neuroleptic and monitoring for worsening of catatonic sx's. 01/03/18 14:05 Psychosis: Calmer. Remains generally disorganized. Will CCM, monitor. Subjective: Pt seen, discussed with staff. He reports feeling "good." States, "I'm ready to go home." Has been calm and generally cooperative, though did go to main door last evening and try to get guest badge again. Now on behavioral plan. Compliant with lorazepam. Objective: Vital Signs Temp Pulse Resp BP Pulse Ox 36.6 C 97 16 121/84 H 97 01/02/18 06:00 01/03/18 06:00 01/03/18 06:00 01/03/18 06:00 01/03/18 06:00 01/02/18 01/03/18 01/04/18 05:59 05:59 05:59 Intake Total 360 240 Balance 360 240 MSE: Marginally groomed, coop. Affect is blunted, stable. Mood is 'good." TP abbreviated with continued delay in response. TC reveals no current mention of AH's, though poor reality testing. - Time Spent With Patient Time Spent With Patient: 25" ICD10 Worksheet Patient Problems: Problems Problem Status Onset Encephalopathy acute Acute
[2018-01-03] MEDS: NEOMY SULF/POLYMYX B SULF/HC 10ML OTIC SOLUTION RTEAR SCH ×2 (15:56→20:55)
[2018-01-04] MEDS: NEOMY SULF/POLYMYX B SULF/HC 10ML OTIC SOLUTION RTEAR SCH ×4 (06:04→20:29)
[2018-01-04] MEDS: LORazepam 1 MG TAB PO SCH ×3 (08:43→20:28)
--- NOTE | 2018-01-04 13:25 | SOAPPROG ---
SOAP Progress Note Assessment/Plan: Assessment: Plan: 12/28/17 16:54 Will monitor at this time, evaluate possibility of catatonia. 12/30/17 10:54 Psychosis: Pt is more obviously psychotic at this time. Catatonic sx's have abated. I believe we must use Zyprexa due to severity of sx's and violent behaviors. Will monitor closely for return of catatonic sx's. If this continues to be a problem, will do ECT on an emergency basis if necessary. Will also schedule lorazepam at 2mg TID for anxiety, behaviors and catatonia. 01/02/18 16:35 Psychosis: Pt is doing much better compared to the severe psychosis demonstrated on Tuesday. Overall clinical picture remains unclear. Less evidence of catatonia today. Tolerated the Zyprexa on Tuesday without worsening of retarded sx's. Will continue lorazepam alone for now, monitor. If he continues to improve, will entertain plan to d/c to home. If he declines again will consider starting scheduled neuroleptic and monitoring for worsening of catatonic sx's. 01/03/18 14:05 Psychosis: Calmer. Remains generally disorganized. Will CCM, monitor. 01/04/18 13:25 Psychosis: Continued gradual improvement. CCM. Subjective: Pt seen, discussed with staff. He reports feeling "sleepy" today. Asks to be allowed to "rest". He continues to spend most of his time in bed. Eating and drinking much better. Denies recent paranoid thoughts or AH's. States, "I don' t really remember that. It was weird." He also states, "I don't know why I have to be on a psych unit for a stomach ache." I reviewed with him our ongoing concerns for his mental health. He is agreeable to this. Objective: Vital Signs Temp Pulse Resp BP Pulse Ox 36.3 C 68 14 113/68 96 01/04/18 06:00 01/04/18 06:00 01/04/18 06:00 01/04/18 06:00 01/04/18 06:00 01/03/18 01/04/18 01/05/18 05:59 05:59 05:59 Intake Total 240 500 Balance 240 500 MSE: Calm, appearing sedate. Affect is blunted, stable. Mood is "tired." TP is linear, though abbreviated. TC reveals no mention or acknowledgment of paranoia or hallucinations. Denies SI/HI/. - Time Spent With Patient Time Spent With Patient: 15" ICD10 Worksheet Patient Problems: Problems Problem Status Onset Encephalopathy acute Acute
[2018-01-04] MEDS: MAGNESIUM HYDROXIDE 30 ML UDCUP PO PRN (13:32)
[2018-01-05] MEDS: NEOMY SULF/POLYMYX B SULF/HC 10ML OTIC SOLUTION RTEAR SCH ×2 (05:57→12:35)
--- NOTE | 2018-01-05 08:37 | SOAPPROG ---
SOAP Progress Note Assessment/Plan: Assessment: Catatonia Patient appears gravely disabled with internal preoccupation and partial mutism. Patient needs prompts to eat and drink. Patient has had poor PO intake over past 24hours. Patient overall is improved and more calm with remission of erratic/impulsive agitation. Plan: Short Term Certification Continue Ativan 1mg TID Monitor PO intake Check AM BMP Prompts for eating and drinking 01/05/18 08:39 Subjective: CC: "OK" Patient denies complaints. Denies sedation or weakness or unsteadiness. Reports reason for admission: 'body pain, my stomach hurt.' Denies irritability or agitation, unable to explain elopement attempts. No answer to several questions. Objective: Vital Signs Temp Pulse Resp BP Pulse Ox 36.3 C 68 14 113/68 96 01/04/18 06:00 01/04/18 06:00 01/04/18 06:00 01/04/18 06:00 01/04/18 06:00 01/04/18 01/05/18 01/06/18 05:59 05:59 05:59 Intake Total 500 150 Balance 500 150 Staff report patient slept 9 hours. Ate 0%, 25%, 25% of meals yesterday with very little fluid intake, but had extra food/drinks brought in by family. Staff report patient quiet, undertalkative, isolating to room, not attending groups. Alert WM staring at wall, lying in bed. Cooperative with prompts to come out to lounge and meal room. Speech soft few words. Thoughts brief with little information. Oriented to month and year. Denies SI or HI or AH or paranoia. Poor insight. - Time Spent With Patient Time Spent With Patient: 15 minutes - Pending Discharge Pending Discharge Within 24 Hours: No Pending Discharge Within 48 Hours: No ICD10 Worksheet Patient Problems: Problems Problem Status Onset Encephalopathy acute Acute
[2018-01-05] MEDS: LORazepam 1 MG TAB PO SCH ×3 (09:18→21:27)
--- NOTE | 2018-01-05 13:28 | SOAPPROG ---
SOAP Progress Note Assessment/Plan: Assessment: Possible otitis externa. Will treat with topical antibiotics/anti inflammatory X 3 days. Observe for resolution of symptoms. Will follow up in 2-3 days. 01/03/18 13:25 Otitis externa resolved. There is no indication to continue anti-inflammatories /antibiotic drops. Monitor for recurrence of symptoms. Encouraged the patient to not put anything inside his ear. 01/05/18 13:28 Subjective: Follow-up on left otitis externa. Reports it is still feels somewhat raw at the tragus peer otherwise he says it generally feels better. Objective: Vital Signs Temp Pulse Resp BP Pulse Ox 36.3 C 68 14 113/68 96 01/04/18 06:00 01/04/18 06:00 01/04/18 06:00 01/04/18 06:00 01/04/18 06:00 01/04/18 01/05/18 01/06/18 05:59 05:59 05:59 Intake Total 500 150 240 Balance 500 150 240 Physical Exam - Physical Exam General Appearance: WD/WN, alert, no apparent distress EENT: TMs normal, other (External auditory canal on the of the left ear appears normal there is no purulence or erythema.) ICD10 Worksheet Patient Problems: Problems Problem Status Onset Encephalopathy acute Acute
[2018-01-06] MEDS: LORazepam 1 MG TAB PO SCH ×3 (08:20→21:40)
[2018-01-06] MEDS: MAGNESIUM HYDROXIDE 30 ML UDCUP PO PRN (13:17)
--- NOTE | 2018-01-06 16:33 | SOAPPROG ---
SOAP Progress Note Assessment/Plan: Assessment: Plan: 12/28/17 16:54 Will monitor at this time, evaluate possibility of catatonia. 12/30/17 10:54 Psychosis: Pt is more obviously psychotic at this time. Catatonic sx's have abated. I believe we must use Zyprexa due to severity of sx's and violent behaviors. Will monitor closely for return of catatonic sx's. If this continues to be a problem, will do ECT on an emergency basis if necessary. Will also schedule lorazepam at 2mg TID for anxiety, behaviors and catatonia. 01/02/18 16:35 Psychosis: Pt is doing much better compared to the severe psychosis demonstrated on Tuesday. Overall clinical picture remains unclear. Less evidence of catatonia today. Tolerated the Zyprexa on Tuesday without worsening of retarded sx's. Will continue lorazepam alone for now, monitor. If he continues to improve, will entertain plan to d/c to home. If he declines again will consider starting scheduled neuroleptic and monitoring for worsening of catatonic sx's. 01/03/18 14:05 Psychosis: Calmer. Remains generally disorganized. Will CCM, monitor. 01/04/18 13:25 Psychosis: Continued gradual improvement. CCM. 01/06/18 16:33 Psychosis: Continued improvement. Need to taper lorazepam and monitor for regression. Subjective: Pt seen, discussed with staff. Reports feeling "out of it." Participated in family meeting with mother, father, step-mother, CC and myself. Able to actively participate, though demonstrates poor insight into illness. Father rather antagonistic, voicing criticisms of many aspects of pt's care including the verbiage of the ST, structure and content of the milieu and therapies, staff interactions, visiting hours, and other issues. Pt's mother redirected discussion appropriately. All agreed to plan for pt to complete taper of lorazepam prior to d/c and then go to his father and step mother's home. Step mother states she will bakery worker conveyor line and be a resource for pt. Pt agrees to plan. Pt continues to eat and drink adequately. Refused labs this morning, but does not appear dehydrated. No agitated or aggressive behaviors noted. Objective: Vital Signs Temp Pulse Resp BP Pulse Ox 36.3 C 68 14 113/68 96 01/04/18 06:00 01/04/18 06:00 01/04/18 06:00 01/04/18 06:00 01/04/18 06:00 01/05/18 01/06/18 01/07/18 05:59 05:59 05:59 Intake Total 150 1340 Balance 150 1340 MSE: Calm, coop. Appears sleepy. Affect is blunted, stable. Mood is "fine." TP linear at times, tangential at others. TC reveals poor I/J. Denies AH's or paranoia. - Time Spent With Patient Time Spent With Patient: 35" ICD10 Worksheet Patient Problems: Problems Problem Status Onset Encephalopathy acute Acute
[2018-01-07] MEDS: LORazepam 1 MG TAB PO SCH (08:14)
--- NOTE | 2018-01-07 15:17 | SOAPPROG ---
SOAP Progress Note Assessment/Plan: Assessment: Per Dr. Mariee's note: 01/02/18 16:35 Psychosis: Pt is doing much better compared to the severe psychosis demonstrated on Tuesday. Overall clinical picture remains unclear. Less evidence of catatonia today. Tolerated the Zyprexa on Tuesday without worsening of retarded sx's. Will continue lorazepam alone for now, monitor. If he continues to improve, will entertain plan to d/c to home. If he declines again will consider starting scheduled neuroleptic and monitoring for worsening of catatonic sx's. 01/03/18 14:05 Psychosis: Calmer. Remains generally disorganized. Will CCM, monitor. 01/04/18 13:25 Psychosis: Continued gradual improvement. CCM. 01/06/18 16:33 Psychosis: Continued improvement. Need to taper lorazepam and monitor for regression. Subjective: Pt seen, discussed with staff. Reports feeling "out of it." Participated in family meeting with mother, father, step-mother, CC and myself. Able to actively participate, though demonstrates poor insight into illness. Father rather antagonistic, voicing criticisms of many aspects of pt's care including the verbiage of the [facility], structure and content of the milieu and therapies, staff interactions, visiting hours, and other issues. Pt's mother redirected discussion appropriately. All agreed to plan for pt to complete taper of lorazepam prior to d/c and then go to his father and step mother's home. Step mother states she will cylinder worker and be a resource for pt. Pt agrees to plan. Plan: 01/07/18 15:12 1. Will continue with taper off Lorazepam over next couple of days. Will change order to 0.5mg TID today. 2. Patient continues to isolate in his room, very withdrawn, minimal interaction with staff, peers and family. He is eating meals in his room. He is eating and drinking fluids adequately. 3. Patient slept 8-1/2 hours last night, but continued to nap throughout the morning. 4. Patient denies any SI/HI, and denies any hallucinations or psychotic sxs. 5. StepREMY says she is willing to take patient home and taper the Ativan herself. reminded family through RN that they all agreed to "taper of lorazepam prior to d/c" and then go to [facility] and [facility]'s house as reported in Dr. Mariee's note (see above). Subjective: Met with patient, reviewed chart and d/w staff. Patient is isolating in his room all day. His family visited for over 2 hrs. [facility] wanted patient to come home this weekend and complete Lorazepam taper at home. reviewed Dr. Mariee' s note about the family meeting on Tuesday, which clearly states that family agreed to plan to taper lorazepam PRIOR TO D/C. Since this was the plan that entire family and patient agreed to on Tuesday, strongly encouraged everyone involved to stick with this plan. Will continue Ativan taper through . Objective: Vital Signs Temp Pulse Resp BP Pulse Ox 36.3 C 68 14 113/68 96 01/04/18 06:00 01/04/18 06:00 01/04/18 06:00 01/04/18 06:00 01/04/18 06:00 01/06/18 01/07/18 01/08/18 05:59 05:59 05:59 Intake Total 1340 1170 Balance 1340 1170 MSE: Affect: Flat Mood: "OK" TP: Slow TC: Denies any SI/HI, denies hallucinations and paranoia Insight/Judgment: Improved - Time Spent With Patient Time Spent With Patient: 15" - Pending Discharge Pending Discharge Within 24 Hours: No Pending Discharge Within 48 Hours: No ICD10 Worksheet Patient Problems: Problems Problem Status Onset Encephalopathy acute Acute
[2018-01-07] MEDS: LORazepam 0.5 MG TAB PO SCH ×3 (16:03→23:10)
[2018-01-08] MEDS: LORazepam 0.5 MG TAB PO SCH ×2 (08:14→21:30)
--- NOTE | 2018-01-08 14:29 | SOAPPROG ---
SOAP Progress Note Assessment/Plan: Assessment: Per Dr. Mariee's note: 01/02/18 16:35 Psychosis: Pt is doing much better compared to the severe psychosis demonstrated on Tuesday. Overall clinical picture remains unclear. Less evidence of catatonia today. Tolerated the Zyprexa on Tuesday without worsening of retarded sx's. Will continue lorazepam alone for now, monitor. If he continues to improve, will entertain plan to d/c to home. If he declines again will consider starting scheduled neuroleptic and monitoring for worsening of catatonic sx's. 01/03/18 14:05 Psychosis: Calmer. Remains generally disorganized. Will CCM, monitor. 01/04/18 13:25 Psychosis: Continued gradual improvement. CCM. 01/06/18 16:33 Psychosis: Continued improvement. Need to taper lorazepam and monitor for regression. Subjective: Pt seen, discussed with staff. Reports feeling "out of it." Participated in family meeting with mother, father, step-mother, CC and myself. Able to actively participate, though demonstrates poor insight into illness. Father rather antagonistic, voicing criticisms of many aspects of pt's care including the verbiage of the STC, structure and content of the milieu and therapies, staff interactions, visiting hours, and other issues. Pt's mother redirected discussion appropriately. All agreed to plan for pt to complete taper of lorazepam prior to d/c and then go to his father and step mother's home. Step mother states she will neonatal social worker and be a resource for pt. Pt agrees to plan. Plan: 01/07/18 15:12 1. Will continue with taper off Lorazepam over next couple of days. Will change order to 0.5mg TID today. 2. Patient continues to isolate in his room, very withdrawn, minimal interaction with staff, peers and family. He is eating meals in his room. He is eating and drinking fluids adequately. 3. Patient slept 8-1/2 hours last night, but continued to nap throughout the morning. 4. Patient denies any SI/HI, and denies any hallucinations or psychotic sxs. 5. StepREMY says she is willing to take patient home and taper the Ativan herself. reminded family through RN that they all agreed to "taper of lorazepam prior to d/c" and then go to [facility]'s and [facility] as reported in Dr. Mariee's note (see above). 01/08/18 14:23 1. Continue Ativan taper. 2. Patient lies in bed with minimal activity most of the day. However, MD observed patient with much more alacrity of movement and voluntary activity when going to dining room to eat with family. He was also more animated when talking to parents than with MD and CC. 3. No real change in his level of motivation or his range of voluntary movements since decreased dose of Ativan. 4. Patient ate 100% of breakfast and drank adequate fluids. 5. Likely d/c on Tuesday to [facility]'s [place]. Subjective: Met with patient, reviewed chart and d/w staff. Patient was lying in bed when MD and CC entered his room. He was resting with head propped on pillow and arms resting on top of blanket. Patient moved his eyes but not his head when speaking to MD. He told CC that his goal was to "lie in this bed and sleep it off." Patient's level of activity is same as earlier in week, according to staff. Staff who are familiar with patient deny any change in movement/activity since Ativan taper was started. MD observed patient moving much more fluidly and talking with more animation when his parents visited for lunch. spoke briefly to patient's [facility] and reiterated plan to complete Ativan taper before patient is discharged. Family and patient all acknowledged understanding that patient will likely d/c on Tuesday after Dr. Mariee has seen him and approved his d/c. Objective: Vital Signs Temp Pulse Resp BP Pulse Ox 36.3 C 68 14 113/68 96 01/04/18 06:00 01/04/18 06:00 01/04/18 06:00 01/04/18 06:00 01/04/18 06:00 01/07/18 01/08/18 01/09/18 05:59 05:59 05:59 Intake Total 1170 800 Balance 1170 800 MSE: Affect: Flat Mood: "OK" TP: Paucity of speech TC: Denies any AH/VH, no SI/HI Insight/Judgment: Poor - Time Spent With Patient Time Spent With Patient: 15" - Pending Discharge Pending Discharge Within 24 Hours: No Pending Discharge Within 48 Hours: No ICD10 Worksheet Patient Problems: Problems Problem Status Onset Encephalopathy acute Acute
--- NOTE | 2018-01-09 13:13 | SOAPPROG ---
SOAP Progress Note Assessment/Plan: Assessment: Per Dr. Mariee's note: 01/02/18 16:35 Psychosis: Pt is doing much better compared to the severe psychosis demonstrated on Tuesday. Overall clinical picture remains unclear. Less evidence of catatonia today. Tolerated the Zyprexa on Tuesday without worsening of retarded sx's. Will continue lorazepam alone for now, monitor. If he continues to improve, will entertain plan to d/c to home. If he declines again will consider starting scheduled neuroleptic and monitoring for worsening of catatonic sx's. 01/03/18 14:05 Psychosis: Calmer. Remains generally disorganized. Will CCM, monitor. 01/04/18 13:25 Psychosis: Continued gradual improvement. CCM. 01/06/18 16:33 Psychosis: Continued improvement. Need to taper lorazepam and monitor for regression. Subjective: Pt seen, discussed with staff. Reports feeling "out of it." Participated in family meeting with mother, father, step-mother, CC and myself. Able to actively participate, though demonstrates poor insight into illness. Father rather antagonistic, voicing criticisms of many aspects of pt's care including the verbiage of the STC, structure and content of the milieu and therapies, staff interactions, visiting hours, and other issues. Pt's mother redirected discussion appropriately. All agreed to plan for pt to complete taper of lorazepam prior to d/c and then go to his father and step mother's home. Step mother states she will flatwork folder and be a resource for pt. Pt agrees to plan. Plan: 01/07/18 15:12 1. Will continue with taper off Lorazepam over next couple of days. Will change order to 0.5mg TID today. 2. Patient continues to isolate in his room, very withdrawn, minimal interaction with staff, peers and family. He is eating meals in his room. He is eating and drinking fluids adequately. 3. Patient slept 8-1/2 hours last night, but continued to nap throughout the morning. 4. Patient denies any SI/HI, and denies any hallucinations or psychotic sxs. 5. StepREMY says she is willing to take patient home and taper the Ativan herself. reminded family through RN that they all agreed to "taper of lorazepam prior to d/c" and then go to [facility]'s and [facility]'s house as reported in Dr. Mariee's note (see above). 01/08/18 14:23 1. Continue Ativan taper. 2. Patient lies in bed with minimal activity most of the day. However, MD observed patient with much more alacrity of movement and voluntary activity when going to dining room to eat with family. He was also more animated when talking to parents than with MD and CC. 3. No real change in his level of motivation or his range of voluntary movements since decreased dose of Ativan. 4. Patient ate 100% of breakfast and drank adequate fluids. 5. Likely d/c on Tuesday to [facility]'s house. 01/09/18 13:10 1. Last dose of Ativan is tonight at . 2. [facility] reported patient had blood in urine and testicular pain yesterday and hospitalist was called for consult. However, when hospitalist interviewed patient today, patient denied any pain and denied any bloody pee. 3. No change in mood, behavior or movement since taper of Ativan. No signs of catatonia. Patient was up and moving around for breakfast this AM, and then went back to bed. 4. Likely to d/c tomorrow. Subjective: Met with patient, reviewed chart and d/w staff. Patient denied any physical complaints. His [facility] told staff that he was having testicular pain yesterday, but patient denied that today. Patient denied any hallucinations and denied SI/ HI. Objective: Vital Signs Temp Pulse Resp BP Pulse Ox 36.3 C 68 14 113/68 96 01/04/18 06:00 01/04/18 06:00 01/04/18 06:00 01/04/18 06:00 01/04/18 06:00 01/08/18 01/09/18 01/10/18 05:59 05:59 05:59 Intake Total 800 240 Balance 800 240 MSE: Affect: Euthymic Mood: "OK" TP: Linear TC: No SI/HI, no AH/VH Insight/ Judgment: Improved - Time Spent With Patient Time Spent With Patient: 15" - Pending Discharge Pending Discharge Within 24 Hours: Yes Pending Discharge Date: 01/10/18 (Possible d/c tomorrow) Pending Discharge Time: 11:00 ICD10 Worksheet Patient Problems: Problems Problem Status Onset Encephalopathy acute Acute
[2018-01-09] MEDS ORDERED: LORazepam 0.5 MG TAB PO SCH (21:00)
[2018-01-10 06:29] VITALS: BP 111/55
--- NOTE | 2018-01-11 12:36 | BDS ---
[f rep st] BEHAVIORAL HEALTH DISCHARGE SUMMARY REASON FOR ADMISSION: Patient is a 22-year-old male with no particular psychiatric history besides some possible past depression. He was admitted to the hospital initially to the medical isa or where he is being worked up for GI complaints and concern about encephalopathy. He had a full wor kup there for both including neurologic consultation, lumbar puncture, and GI studies. These were al l negative and the patient was thought to maybe be catatonic. He was seen by Dr. Casandra Gillis in [facility] on the medical floor and thought to be catatonic, and transferred to the [facility] inpatient unit for further evaluation due to grave disability. A full description of the ev ents preceding admission can be found in his admission history dated 12/28/2017. ADMITTING DIAGNOSES: 1. Catatonia. 2. Possible unspecified depressive disorder. 3. Cannabis use disorder, severe. 4. Unemployment. 5. Family conflicts. EXAM: Admitting physical exam was performed by Dr. Jere Barry and revealed the ongoing abdomina l pain that was nonspecific. ADMISSION LABORATORY: No additional labs were drawn on transfer. A full complement of labs was revi ewed from inpatient medical stay. No significant abnormalities were noted. HOSPITAL COURSE: Patient was admitted to the [facility] inpatient unit on an M1 hold. He definitely appeared catatonic. He was noted to be sitting almost in an almost cataleptic state. He was difficult to interview and I could not obtain a full history from him on the first day. I th en spent an hour talking with his father and stepmother, and got a clearer picture that he had been d eclining for the past 6-8 months. He had apparently had a rough time for several years since approxi mately the age of 19. His parents directly correlated this with his level of marijuana use and state d that when he was using marijuana more heavily, he was more paranoid and irritable. They state this led to him being kicked out of the home and going to live with friends, and then ultimately returnin g under the promise of abstinence. 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 T hey believe that this caused him to be very anxious and upset and he returned to marijuana use. By C hristmas time he had reverted to his previous paranoid, argumentative and irritable behaviors, and th ey again kicked him out of the home. He then went to live with 5 roommates who used cannabis heavily and began to use concentrated forms. He continued to decline after that, isolating in his home, not going to work, and losing his job. He also lost his girlfriend because he discussed with her some o f his paranoid thoughts. This progressed and as the roommates became more concerned about him prompt ing the mental health evaluation. On the unit, the patient remained fairly catatonic. He was not eating or drinking well and at 1 poin t on 01/01/2018, required transfer to the emergency department for dehydration. He was not admitted and was returned to the [facility] inpatient unit after rehydration. Because of his ca tatonia, we held off using antipsychotic medications. Unfortunately, on the evening of December 29, he be came suddenly quite agitated, attempted to force his way off the unit resulting in physical restraint and seclusion. He stated he was hearing voices from a helicopter that was circling the building and this was what was upsetting him. He was given 20 mg of Zyprexa over 2 shifts and 6 mg of lorazepam. He did finally sleep after approximately 36 hours of being awake and when he awoke the next day, th e psychosis had cleared. He did not require further use of the Zyprexa and we continued him on an At lilliana taper for the catatonia. I met with the patient's family on January 06, to discuss the overall plan and discharge plan. This meet ing consisted of the patient, the patient's biological mother and father, his stepmother, the care co ordinator and myself. All agreed that he was improving greatly, but they wanted to see if he would d o okay off the lorazepam completely. It was agreed that he would stay through the and discharge on Tuesday if he was doing well. We continued to taper the lorazepam over this 4 da y interval and he tolerated this quite well. He was seen by Dr. Ron Wright on January 07, , and 09 22 and was noted to be functioning well. If he was left in his room by himself, he tended to be und eractive, staring ahead, and not interacting, but would immediately engage with someone if they enter ed the room and his thoughts were spontaneous, and fluent. On TuesdayJanuary 10, I saw him and decided that he was stable enough for discharge. The plan had been that he was completely off the lorazepam, was not appearing acutely psychotic, was not overtly catato albert, and could go to his father and stepmother's home, and his stepmother would be there working from home to be supportive. It is of note that after the meeting on Tuesday, the stepmother called and le ft a message on my outpatient office voicemail at 7 p.m. stating that she believed the hospital was m aking the patient worse and wanted him discharged immediately. Then on the next day, Tuesday, she t old the staff she also wanted the patient discharged and Dr. Wright declined to do this as we were cont inuing with the taper as previously agreed. We did discharge the patient on Tuesday the , as he was appearing stable and it was consistent with our previously discussed plan. CONDITION ON DISCHARGE: Stable. The patient still had some retardation, but was not overtly cataton ic. He was displaying no evidence of acute psychosis. He was off all psychotropic medications and t he plan was to allow him to slowly recuperate in the absence of the influence of the high dose cannab is and hopefully continue to improve. DISCHARGE MEDICATIONS: None. DISCHARGE DIAGNOSES: 1. 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 2. Cannabis use disorder, severe. 3. 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 DISPOSITION: Patient left the hospital with his parents to go back to their home. FOLLOW UP: Was per primary care nurse within a week of discharge. The patient and family were given nany salvador instructions at time of discharge. LEGAL COURSE: Patient was placed on a short-term certification at the expiration of his M1 hold. Short-term certification was discontinued at time of his discharge. Attitude at discharge was positive and patient stated that he felt like he could care for himself. The patient was a full code throughout his stay. There were no pending labs or studies at time of discharge. /[id number]/MODL
== END 2018-01-10 13:10 | disposition home or self-care (01) | DRG 885 ==
LOC: BBEH 21:20
PROVIDERS: ADMIT Psychiatry & Neurology Behavioral Neurology & Neuropsychiatry; ATTEND Psychiatry & Neurology Psychiatry
DX: F20.2 Catatonic schizophrenia (principal); F12.159 Cannabis abuse with psychotic disorder, unspecified; R10.9 Unspecified abdominal pain; Z56.0 Unemployment, unspecified
CPT/HCPCS: J2060

== ENCOUNTER 2018-01-01 11:54 | Emergency (ER) | payer OTHER ==
[2018-01-01] MEDS ORDERED: NS 1,000 ML IV ONE (12:00)
--- NOTE | 2018-01-01 12:05 | EDPHY ---
H & P Smoking Status: Never smoked Time Seen by Provider: 01/01/18 12:02 HPI/ROS: CHIEF COMPLAINT: Weakness, possible dehydration HISTORY OF PRESENT ILLNESS: 22-year-old male presents to the emergency department by ambulance from [address] [place] [address] with possible dehydration. The patient was admitted to Behavioral Health unit 2 days ago and has been refusing to eat or drink anything. He is unsure when he last urinated. Patient feels overall weakness. He denies pain in his chest or difficulty breathing. No reported trauma. No fevers or chills. No abdominal pain. No vomiting or diarrhea. He denies substance abuse or alcohol. REVIEW OF SYSTEMS: Constitutional: No fever, no chills. Eyes: No double or blurry vision. ENT: No sore throat. Respiratory: No cough, no shortness of breath. Cardiac: No chest pain. Gastrointestinal: No abdominal pain, vomiting or diarrhea. Genitourinary: No dysuria. Musculoskeletal: No neck or back pain. Skin: No rashes. Neurological: No headache. (Ramila Mccormick) Past Medical/Surgical History: Depression (Ramila Mccormick) Social History: Single (Ramila Mccormick) Physical Exam: General Appearance: Lethargic, no distress. Answering questions appropriately. Eyes: Pupils equal and round. Extraocular motions are all intact. ENT: Mouth: Mucous membranes moist. Respiratory: No wheezing, rhonchi, or rales, lungs are clear to auscultation. Cardiovascular: Regular rate and rhythm. Gastrointestinal: Abdomen is soft and nontender, no masses, no rebound or guarding, bowel sounds normal. Neurological: Alert and oriented x 3, cranial nerves II through XII grossly intact Skin: Warm and dry, no rashes. Musculoskeletal: Nontender to palpate along the cervical, thoracic or lumbar spine. Neck is supple. Extremities: Full range of motion and no peripheral edema. Psychiatric: Patient is oriented X 3, there is no agitation. (Ramila Mccormick) Constitutional: Initial Vital Signs Temperature (C) 36.5 C 01/01/18 12:03 Heart Rate 50 L 01/01/18 12:03 Respiratory Rate 16 01/01/18 12:03 Blood Pressure 107/85 H 01/01/18 12:03 O2 Sat (%) 98 01/01/18 12:03 O2 Delivery Mode Room Air Allergies/Adverse Reactions: sulfamethoxazole [From Septra] Allergy (Verified 08/07/10 02:16) trimethoprim [From Septra] Allergy (Verified 08/07/10 02:16) Home Medications: Medication Instructions Recorded NK [No Known Home Meds] 12/26/17 Medical Decision Making ED Course/Re-evaluation: 22-year-old male presents to the emergency department by ambulance from [address] [place] [address] to rule out possible dehydration. While he was in the emergency department, the patient drank some apple juice and ate food. Laboratory studies were unremarkable. The patient will be discharged back to [address] [place] [address]. No evidence of dehydration cranial laboratory studies are clinically. (Ramila Mccormick) Differential Diagnosis: Depression including functional and major depression, situational depression, medication side effect, drugs and alcohol abuse. (Ramila Mccormick) Other Provider: PHYSICIAN DOCUMENTATION: The patient was evaluated and managed by the Physician Nanotechnician. My co- signature indicates that I have reviewed this chart and I agree with the findings and plan of care as documented. I am the secondary supervising physician. (Yosvany Mccollum) - Data Points Laboratory Results: Laboratory Results 01/01/18 12:08 01/01/18 12:08 01/01/18 01/01/18 01/01/18 12:08 12:08 12:01 WBC 5.59 10^3/uL 10^3/uL (3.80-9.50) RBC 5.47 10^6/uL 10^6/uL (4.40-6.38) Hgb 16.3 g/dL g/dL (13.7-17.5) Hct 47.4 % % (40.0-51.0) MCV 86.7 fL fL (81.5-99.8) MCH 29.8 pg pg (27.9-34.1) MCHC 34.4 g/dL g/dL (32.4-36.7) RDW 12.2 % % (11.5-15.2) Plt Count 242 10^3/uL 10^3/uL (150-400) MPV 10.3 fL fL (8.7-11.7) Neut % (Auto) 55.8 % % (39.3-74.2) Lymph % (Auto) 34.7 % % (15.0-45.0) Morris % (Auto) 6.6 % % (4.5-13.0) Eos % (Auto) 1.8 % % (0.6-7.6) Baso % (Auto) 0.9 % % (0.3-1.7) Nucleat RBC Rel Count 0.0 % % (0.0-0.2) Absolute Neuts (auto) 3.12 10^3/uL 10^3/uL (1.70-6.50) Absolute Lymphs (auto) 1.94 10^3/uL 10^3/uL (1.00-3.00) Absolute Monos (auto) 0.37 10^3/uL 10^3/uL (0.30-0.80) Absolute Eos (auto) 0.10 10^3/uL 10^3/uL (0.03-0.40) Absolute Basos (auto) 0.05 10^3/uL 10^3/uL (0.02-0.10) Absolute Nucleated RBC 0.00 10^3/uL 10^3/uL (0-0.01) Immature Gran % 0.2 % % (0.0-1.1) Immature Gran # 0.01 10^3/uL 10^3/uL (0.00-0.10) Sodium 147 mEq/L H mEq/L (135-145) Potassium 4.1 mEq/L mEq/L (3.3-5.0) Chloride 104 mEq/L mEq/L (97-110) Carbon Dioxide 29 mEq/l mEq/l (22-31) Anion Gap 14 mEq/L mEq/L (8-16) BUN 24 mg/dL H mg/dL (7-23) Creatinine 1.0 mg/dL mg/dL (0.7-1.3) Estimated GFR > 60 Glucose 83 mg/dL mg/dL (70-100) Calcium 9.4 mg/dL mg/dL (8.5-10.4) H. pylori IgG Antibody NEGATIVE (NEG) Medications Given: Discontinued Medications Sodium Chloride (Ns) 1,000 mls @ 0 mls/hr IV ONCE ONE PRN Reason: Wide Open Stop: 01/01/18 12:01 Last Admin: 01/01/18 12:20 Dose: 1,000 mls Departure - Departure Disposition: Home, Routine, Self-Care Clinical Impression: Depression Qualifiers: Depression Type: unspecified Qualified Code(s): F32.9 - Major depressive disorder, single episode, unspecified Condition: Good Instructions: Depression (ED) Additional Instructions: You are being discharged back to [facility]. You have no evidence of dehydration in your blood work. Referrals: Patient,NotPresent [Unknown] - As per Instructions
[2018-01-01 12:18] LABS: PLATELET COUNT 242 10^3/uL (150-400)
[2018-01-01 15:05] VITALS: BP 109/53
== END 2018-01-01 15:04 | disposition home or self-care (01) ==
LOC: EDUNIT#
DX: F32.9 Major depressive disorder, single episode, unspecified (principal); E86.0 Dehydration

== ENCOUNTER 2018-02-25 21:54 | Emergency (ER) | payer OTHER ==
[2018-02-25 22:24] LABS: PLATELET COUNT 240 10^3/uL (150-400)
--- NOTE | 2018-02-25 22:47 | EDPHY ---
H & P Smoking Status: Never smoked Time Seen by Provider: 02/25/18 22:24 HPI/ROS: CHIEF COMPLAINT: M1 hold HISTORY OF PRESENT ILLNESS: 22-year-old male presents to the emergency department on M1 hold. The patient has been hearing voices telling him to kill himself. He denies any physical complaints. Denies pain in his chest or difficulty breathing. Denies abdominal pain. Denies any reported trauma. He denies alcohol or other substance abuse. He states that he denies suicidal or homicidal ideation. REVIEW OF SYSTEMS: Constitutional: No fever, no chills. Eyes: No double or blurry vision. ENT: No sore throat. Respiratory: No cough, no shortness of breath. Cardiac: No chest pain. Gastrointestinal: No abdominal pain, vomiting or diarrhea. Genitourinary: No dysuria. Musculoskeletal: No neck or back pain. Skin: No rashes. Neurological: No headache. (Ramila Mccormick) Past Medical/Surgical History: Psychiatric history (Ramila Mccormick) Social History: Single (Ramila Mccormick) Physical Exam: General Appearance: Alert, no distress. Very slow to answer questions. Eyes: Pupils equal and round. Extraocular motions are all intact. Conjunctival injection noted bilaterally. ENT: Mouth: Mucous membranes moist. Respiratory: No wheezing, rhonchi, or rales, lungs are clear to auscultation. Cardiovascular: Regular rate and rhythm. Gastrointestinal: Abdomen is soft and nontender, no masses, no rebound or guarding, bowel sounds normal. Neurological: Alert and oriented x 3, cranial nerves II through XII grossly intact Skin: Warm and dry, no rashes. Musculoskeletal: Nontender to palpate along the cervical, thoracic or lumbar spine. Neck is supple. Extremities: Full range of motion and no peripheral edema. Psychiatric: Patient is oriented X 3, there is no agitation. (Ramila Mccormick) Constitutional: Initial Vital Signs Temperature (C) 37.1 C 02/25/18 22:11 Heart Rate 65 02/25/18 22:11 Respiratory Rate 16 02/25/18 22:11 Blood Pressure 120/85 H 02/25/18 22:11 O2 Sat (%) 97 02/25/18 22:11 O2 Delivery Mode Room Air Allergies/Adverse Reactions: sulfamethoxazole [From ] Allergy (Verified 08/07/10 02:16) trimethoprim [From Septra] Allergy (Verified 08/07/10 02:16) Home Medications: Medication Instructions Recorded NK [No Known Home Meds] 12/26/17 Medical Decision Making ED Course/Re-evaluation: 22-year-old male presents to the emergency department on M1 hold. Patient denies suicidal homicidal ideation. He has been medically cleared. The patient has been evaluated by mental health and they are looking for placement. Per the nurse, Mother and father would like the patient [facility] at [facility]. ( Ramila Mccormick) PHYSICIAN DOCUMENTATION: The patient was evaluated and managed by the Physician Offset Press Operator Helper. My co- signature indicates that I have reviewed this chart and I agree with the findings and plan of care as documented. I am the secondary supervising physician. 6:13 a.m.- The patient has been accepted for care at [facility] by Dr. Segundo. I have completed the EMTALA form. (Sosa Amador) Differential Diagnosis: Depression including functional and major depression, situational depression, medication side effect, drugs and alcohol abuse. (Ramila Mccormick) Care Turn Over: Care will be turned over to Dr. Amador at shift change for disposition and plan. (Ramila Mccormick) - Data Points Laboratory Results: Laboratory Results 02/25/18 22:08 02/25/18 22:08 02/25/18 02/25/18 02/25/18 22:20 22:08 22:08 WBC 7.25 10^3/uL 10^3/uL (3.80-9.50) RBC 6.14 10^6/uL 10^6/uL (4.40-6.38) Hgb 18.4 g/dL H g/dL (13.7-17.5) Hct 52.5 % H % (40.0-51.0) MCV 85.5 fL fL (81.5-99.8) MCH 30.0 pg pg (27.9-34.1) MCHC 35.0 g/dL g/dL (32.4-36.7) RDW 12.2 % % (11.5-15.2) Plt Count 240 10^3/uL 10^3/uL (150-400) MPV 10.2 fL fL (8.7-11.7) Neut % (Auto) 54.7 % % (39.3-74.2) Lymph % (Auto) 36.4 % % (15.0-45.0) [place] % (Auto) 6.2 % % (4.5-13.0) Eos % (Auto) 1.4 % % (0.6-7.6) Baso % (Auto) 1.2 % % (0.3-1.7) Nucleat RBC Rel Count 0.0 % % (0.0-0.2) Absolute Neuts (auto) 3.96 10^3/uL 10^3/uL (1.70-6.50) Absolute Lymphs (auto) 2.64 10^3/uL 10^3/uL (1.00-3.00) Absolute Monos (auto) 0.45 10^3/uL 10^3/uL (0.30-0.80) Absolute Eos (auto) 0.10 10^3/uL 10^3/uL (0.03-0.40) Absolute Basos (auto) 0.09 10^3/uL 10^3/uL (0.02-0.10) Absolute Nucleated RBC 0.00 10^3/uL 10^3/uL (0-0.01) Immature Gran % 0.1 % % (0.0-1.1) Immature Gran # 0.01 10^3/uL 10^3/uL (0.00-0.10) Sodium 136 mEq/L mEq/L (135-145) Potassium 4.0 mEq/L mEq/L (3.3-5.0) Chloride 100 mEq/L mEq/L (97-110) Carbon Dioxide 22 mEq/l mEq/l (22-31) Anion Gap 14 mEq/L mEq/L (8-16) BUN 18 mg/dL mg/dL (7-23) Creatinine 1.0 mg/dL mg/dL (0.7-1.3) Estimated GFR > 60 Glucose 74 mg/dL mg/dL (70-100) Calcium 10.0 mg/dL mg/dL (8.5-10.4) Urine Opiates Screen NEGATIVE (NEGATIVE) Urine Barbiturates NEGATIVE (NEGATIVE) Ur Phencyclidine Scrn NEGATIVE (NEGATIVE) Ur Amphetamine Screen NEGATIVE (NEGATIVE) U Benzodiazepines Scrn NEGATIVE (NEGATIVE) Urine Cocaine Screen NEGATIVE (NEGATIVE) U Marijuana (THC) Screen NEGATIVE (NEGATIVE) Ethyl Alcohol < 10 mg/dL mg/dL (0-10) Departure - Departure Disposition: Other Psych, Not [facility] Clinical Impression: Depression Qualifiers: Depression Type: unspecified Qualified Code(s): F32.9 - Major depressive disorder, single episode, unspecified Condition: Good Referrals: Rodger Escoto MD [Primary Care Provider] - As per Instructions
--- NOTE | 2018-02-26 00:21 | ASMTLCPROG ---
Notes Note: Notes: Spoke with parents Dad and Step mom. Will complete eval send to [facility] per pt's parents request Date Signed: 02/26/2018 12:21 AM Electronically Signed By:Abdi Torres
--- NOTE | 2018-02-26 01:10 | ASMTTLCEVL ---
TLC Evaluation - Basic Information Evaluation Start Date and 02/26/2018 11:30 AM Time Hospital Status Answers: M1 Hold 72-hr M1 Hold Start Date 02/25/2018 09:55 PM and Time Patient statement Notes: "I'm here because they were concern that I was hearing voices I guess?" Narrative Notes: PT is a 22 YO Male and presented to ED via police who put pt on an M1 Hold. PT is unmarried has no children, unemployed, living with his parents. Per pt's parents PT has been laying in bed for almost two weeks, he comes down to fill up his water bottle. He eats every 4-5 days. Pt has used THC 3-4 times since [facility] discharge. PT's parents reported that Dr. Mariee called to do a welfare check on the PT. The pt's parents reported that the PT had told them he was seeing things move, and the voices where telling him to kill himself, and he had been crying stating his's not sure if he can handle this, and later shouting 'NO' at the voices. Per PT's parents he has continued to deteriate. PT reports his sleep is terrible. PT spends all day in bed starring up at the cieling or hernandez PT was previosuly on [facility] 3N after a hosptial stay with possible encephalopathy; pt was admited to 3N stablized and discharged. PER M1 Hold " On 02-25-18@Approx 2000 Hrs I deputy prasad, was dispatched to the above address for a welfare check. Upon arrival I contacted Jose Del Toro who said he is hearing voices that are telling him to kill himself. Jose was transported to [facility] on a [facility] health hold. Diagnosis History Notes: Per [facility] Discharge summary - Unspecified Psychotic disorder; Severe Cannibus Use Disorder, Possibe schizophenifrom disorder. Prior suicide attempts Notes: None reported; however per pt's parents the pt has previously expereinced SI at 20 yo due to increased paranoia depressoin in the fall of 2015. Pt denied any attempts. Prior hospitalizations Notes: On 3N 01-01-18 through 01-09-18; pt refused medication and pt told parents he avoided taking medication unless it was forced via IM in the ER due to his elopment attempt. Treatment Responses Notes: Per discharge summary pt appeared to be stabilized enought to return home with parents and was no longer gravely disabled. History of violence Notes: None reported. Therapist: Rodolfo Psychiatrist: None Medications (name, dosage, route, freq uency) Notes: PT took Ativan but had refused some meds. Per [facility] records. PT reportedly been taking zyprexa and klonapin. Allergies/Reaction Notes: Sulfa Sleep Notes: PT reports his sleep is terrible. PT spends all day in bed starring up at the cieling or hernandez Appetite Notes: Poor PT has eats every 4-5 days. 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 Substance use history (frequency, intensity, his tory, duration) Notes: THC . Pt has used THC 3-4 times since [facility] discharge. Family composition Notes: Pt's parents are . Pt has an older brother. Pt's father remarried, and the stepmother has a good relationship with the biological mother. Need for family Answers: Yes participation in patient's care Family psychiatric/substance abuse history Notes: Significant for first-degree relatives on his mother's side with substnce issues with possible psychosis. Developmental history Notes: Possible body image issues Abuse concerns Answers: None Marital status/children Notes: Unmarried; No children Living situation Notes: Living with parents; per previous records the pt was living with roommates who used lots of thc Sexual history/orientation Notes: Heterosexual not sexually active. 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 Mother may have mental illness. Deaf in his left ear. 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 Collateral Data Obtained from pt's Stepmother - Vilma laguerre [phone]; PT's Father Naren Del Toro - [phone] [facility] Evaluation - Mental Status Exam Appearance: Answers: Appropriate Clean Well Groomed Eye Contact: Answers: Good/Direct Mood: Answers: Depressed Sad Affect: Answers: Appropriate Anxious Apprehensive Blunted Calm Fearful Flat Guarded Labile Nervous Subdued Suspicious Behavior: Answers: Appropriate Cooperative Fatigued Guarded Manipulative Passive Suspicious Withdrawn Speech: Answers: Relevant Coherent Delayed Mumbling Soft Thought Process: Answers: Organized Oriented Goal Oriented Paranoid Thought Blocking Insight: Answers: Poor Judgement: Answers: Poor Manic Signs/Symptoms Answers: Irritability Mood Swings Depression Answers: Crying Spells Signs/Symptoms: Difficulty Concentrating Diminished Interest Diminished Pleasure Flat Affect Hopelessness Psychomotor Retardation Sad Mood Withdrawn Worthlessness Anxiety Signs/Symptoms Answers: Generalized Anxiety Hallucinations: Answers: Auditory Command Visual Delusions: Answers: Being Controlled Erotic/Stalking Ideas of Reference Mood-Congruent Paranoid Ideation Persecution Thought Insertion Current Stage of Change Answers: Precontemplation Pt reported to have Answers: Yes suicidal/self-injuring ideation/behavior? Pt reported to be making Answers: Yes suicidal/self-injuring threats? Pt reported to be making Answers: No aggression/assault threats? Pt exhibits inability to Answers: Yes care for self/grave disability? Ideation/behavior is Answers: No chronic? Patient has a specific Answers: No plan? Pt has access to means to Answers: No execute the plan? Ideation involves Answers: No serious/lethal intent? History of Answers: Yes suicidal/self-injuring ideation, behavior, or threats? History of Answers: No aggressive/assaultive ideation, behavior, or threats? History of serious Answers: No physical harm to self/others while in treatment setting? [facility] Evaluation - Suicide/Homicide Risk Suicide Risk Factors: Answers: Anxiety/Panic, Severe Calm After Agitated Depression Command Hallucinations Flat Affect Hopelessness Impulsivity Inadequate Social Support Lack of Social Support Lack/Loss of Employment Problems with Partner Psychotic Disorder Rapid Mood Shifts Schizophrenia Single Unstable Living Situation Homicide/violence risk Answers: Command Hallucinations factors: Paranoid Ideation Current Suicidal Answers: Yes Ideation? Current Suicidal Ideation Answers: Yes in the Past 48 Hours? Current Suicidal Ideation Answers: Yes in the Past Month? Current Suicidal Answers: Yes Ideation, Worst Ever? Suicide Internal Answers: Frustration Tolerance Protective Factors: Virgilio with Stress Suicide External Answers: Positive Therapeutic Protective Factors: Relationships Social Support Ranking of patient's Answers: Moderate suicidal risk: Ranking of patient's Answers: Low homicidal risk: TLC Evaluation - Wrap-up BDI Total Score: 8 BDI Question #2 Score: 0 BDI Question #9 Score: 0 BSS Total Score: 0 AXIS I Diagnosis (include DSM-V and ICD-10 codes), must also be entered in [facility], which is the source of truth. Notes: F29 Unspecified schizophrenia spectrum and other psychotic disorder DSM 298.9 Evaluation End Date and 02/26/2018 01:30 AM Time (HH:MM): Date Signed: 02/26/2018 01:09 AM Electronically Signed By:Abdi Torres
--- NOTE | 2018-02-26 01:42 | ASMTLCPROG ---
Notes Note: Notes: Imelda has been contacted and referrals sent. Date Signed: 02/26/2018 01:41 AM Electronically Signed By:Abdi Torres
--- NOTE | 2018-02-26 02:15 | ASMTLCPROG ---
Notes Note: Notes: Billing and tracking complete. Faxed a paper copy to AM and after Hours [facility] addmissions fax. Date Signed: 02/26/2018 02:14 AM Electronically Signed By:Abdi Torres
--- NOTE | 2018-02-26 02:26 | ASMTLCPROG ---
Notes Note: Notes: [facility] called ED and reported they only have female beds. Sunil referal to [place] Date Signed: 02/26/2018 02:25 AM Electronically Signed By:Abdi Torres
--- NOTE | 2018-02-26 06:14 | ASMTTCLDSP ---
TLC Discharge Disposition Disposition: Answers: Transfer Disposition Notes: Notes: Per consultation with ED Physican Edwina Amador and On-Call Psychiatrist Len Mariee MD, PT continues to meet M1-Hold 27-65 Criteria for grave disability due to a mental illness. Discharge Concerns/Recommendations: Notes: PT's family is requesting [facility] for inpt treatment. [facility] has no availability. Pt accepted at [facility] who also has a dual diagnosis program. Pt's parents will be notified. Was patient given the Answers: Not applicable Inpatient [facility] Prohibited Belongings List while in the ED? Type of Hold: Answers: M1/72-hour Hold Hold initiated by: Answers: Police For Transfers, Accepting [facility] Facility: For Transfers, Accepting Dr. Kramer Psychiatrist: For Transfers, Reason Pt's parents requested dual diagnosis program. Patient is Being Transferred: Date Signed: 02/26/2018 06:13 AM Electronically Signed By:Sadia Leiva
[2018-02-26 06:21] VITALS: BP 114/84
== END 2018-02-26 06:20 ==
DX: F32.9 Major depressive disorder, single episode, unspecified (principal)
CPT/HCPCS: 80305; G0480

== ENCOUNTER 2018-03-12 11:56 | Emergency (ER) | payer OTHER ==
--- NOTE | 2018-03-12 13:17 | EDPHY ---
H & P Time Seen by Provider: 03/12/18 12:58 HPI/ROS: Chief complaint. Concern for allergic reaction to resperdal HPI. Patient's 22-year-old male who was recently hospitalized for psychiatric illness has been taking respite all for 2 weeks. Had been taking Cogentin as well but stopped this 4 days ago. He now has 2 day history of shortness of breath and restlessness. No cough or fever. His shortness of breath is worse after eating. He has some central chest tightness. Slight nausea. No vomiting diarrhea or abdominal pain. Denies headache or visual symptoms or eye pain. No upper respiratory symptoms. No rash. ROS Constitutional. no fever/chills, no weakness Eyes. no problems with vision ENT. no sore throat, no nasal drainage Cardiovascular. Central chest tightness Respiratory. Short of breath Abdominal. no abdominal pain, no nausea/vomiting, no diarrhea . no problems urinating MS. no calf pain/swelling, no neck/back pain, no joint pain Skin. no rash Lymph. no swollen glands Neuro. Rest less Past Medical/Surgical History: Psychiatric history Social History: Single, nonsmoker, no alcohol Smoking Status: Never smoked Physical Exam: General Appearance: Alert well-developed male somewhat restless and agitated mild distress vital signs are stable Eyes: Pupils equal and round no pallor or injection. ENT, Mouth: Mucous membranes are moist. There is no significant cervical adenopathy Respiratory: There are no retractions, lungs are clear to auscultation. Cardiovascular: Regular rate and rhythm. Gastrointestinal: Abdomen is soft and nontender, no masses, bowel sounds normal. Neurological: Awake and alert, sensory and motor exams grossly normal. Skin: Warm and dry, no rashes. Musculoskeletal: Neck is supple nontender. Extremities symmetrical, full range of motion. Psychiatric: Patient is oriented X 3, there is no agitation. Constitutional: Initial Vital Signs Temperature (C) 36.8 C 03/12/18 12:00 Heart Rate 85 03/12/18 12:00 Respiratory Rate 16 03/12/18 12:00 Blood Pressure 123/68 H 03/12/18 12:00 O2 Sat (%) 96 03/12/18 12:00 O2 Delivery Mode Room Air Allergies/Adverse Reactions: sulfamethoxazole [From Aprra] Allergy (Verified 03/12/18 11:59) trimethoprim [From Septra] Allergy (Verified 03/12/18 11:59) Home Medications: Medication Instructions Recorded Risperdal 03/12/18 Medical Decision Making - Diagnostics EKG Interpretation: EKG interpreted by me shows normal sinus rhythm normal interval and axis. QRS is normal there is no significant ST elevation or depression. Arrhythmia. The rate is 73 Imaging Results: Imaging Impressions Chest X-Ray 03/12/18 13:19 Impression: Clear lungs. No acute process. Procedures: IV normal saline ED Course/Re-evaluation: Re-evaluation at 2:10 p.m.. Patient is stable. He and I discussed laboratory evaluation, treatment plan including criteria for return importance of follow- up and further evaluation. We will see if we can get mental health to see this patient today as he apparently does not have any psychiatric followup following his recent hospitalization Patient has been evaluated by mental health and they have discussed disposition and follow up with the patient and family. They are happy and satisfied and feel ready to be discharged Differential Diagnosis: I have considered dress syndrome and eosinophilia possible with atypical antipsychotics. Patient has a normal EKG. No evidence for a granulocytosis, eosinophilia or atypical lymphocytes, pancreatitis, interstitial pneumonitis or pleural effusion, protein urea or renal compromise. AST is slightly elevated of unclear significance I really do not find any systemic or metabolic affects of the resperdone. He also does not have a rash. - Data Points Laboratory Results: Laboratory Results 03/12/18 13:30 03/12/18 13:30 03/12/18 03/12/18 03/12/18 13:49 13:42 13:30 WBC RBC Hgb Hct MCV MCH MCHC RDW Plt Count MPV Neut % (Auto) Lymph % (Auto) [place] % (Auto) Eos % (Auto) Baso % (Auto) Nucleat RBC Rel Count Absolute Neuts (auto) Absolute Lymphs (auto) Absolute Monos (auto) Absolute Eos (auto) Absolute Basos (auto) Absolute Nucleated RBC Immature Gran % Immature Gran # Sodium 139 mEq/L mEq/L (135-145) Potassium 4.2 mEq/L mEq/L (3.3-5.0) Chloride 105 mEq/L mEq/L (97-110) Carbon Dioxide 27 mEq/l mEq/l (22-31) Anion Gap 7 mEq/L L mEq/L (8-16) BUN 18 mg/dL mg/dL (7-23) Creatinine 0.7 mg/dL mg/dL (0.7-1.3) Estimated GFR > 60 Glucose 81 mg/dL mg/dL (70-100) Calcium 9.4 mg/dL mg/dL (8.5-10.4) Total Bilirubin 0.4 mg/dL mg/dL (0.1-1.4) Conjugated Bilirubin 0.0 mg/dL mg/dL (0.0-0.5) Unconjugated Bilirubin 0.4 mg/dL mg/dL (0.0-1.1) AST 46 IU/L IU/L (17-59) ALT 112 IU/L H IU/L (21-72) Alkaline Phosphatase 43 IU/L IU/L (38-126) Creatine Kinase 69 IU/L IU/L (0-224) POC Troponin I 0.00 ng/mL ng/mL (0.00-0.08) Total Protein 6.8 g/dL g/dL (6.3-8.2) Albumin 4.3 g/dL g/dL (3.5-5.0) Lipase 109 IU/L IU/L (23-300) TSH 2.420 uIU/mL uIU/mL (0.465-4.680) Urine Color YELLOW Urine Appearance CLEAR Urine pH 6.0 (5.0-7.5) Ur Specific [place] 1.014 (1.002-1.030) Urine Protein NEGATIVE (NEGATIVE) Urine Ketones NEGATIVE (NEGATIVE) Urine Blood NEGATIVE (NEGATIVE) Urine Nitrate NEGATIVE (NEGATIVE) Urine Bilirubin NEGATIVE (NEGATIVE) Urine Urobilinogen NEGATIVE EU EU (0.2-1.0) Ur Leukocyte Esterase NEGATIVE (NEGATIVE) Urine RBC NONE SEEN /hpf /hpf (0-3) Urine WBC 1-3 /hpf /hpf (0-3) Ur Epithelial Cells TRACE /lpf /lpf (NONE-1+) Urine Glucose NEGATIVE (NEGATIVE) 03/12/18 13:30 WBC 7.70 10^3/uL 10^3/uL (3.80-9.50) RBC 4.57 10^6/uL 10^6/uL (4.40-6.38) Hgb 13.7 g/dL g/dL (13.7-17.5) Hct 41.2 % % (40.0-51.0) MCV 90.2 fL fL (81.5-99.8) MCH 30.0 pg pg (27.9-34.1) MCHC 33.3 g/dL g/dL (32.4-36.7) RDW 13.3 % % (11.5-15.2) Plt Count 226 10^3/uL 10^3/uL (150-400) MPV 8.9 fL fL (8.7-11.7) Neut % (Auto) 65.7 % % (39.3-74.2) Lymph % (Auto) 24.7 % % (15.0-45.0) [place] % (Auto) 8.2 % % (4.5-13.0) Eos % (Auto) 0.9 % % (0.6-7.6) Baso % (Auto) 0.4 % % (0.3-1.7) Nucleat RBC Rel Count 0.0 % % (0.0-0.2) Absolute Neuts (auto) 5.06 10^3/uL 10^3/uL (1.70-6.50) Absolute Lymphs (auto) 1.90 10^3/uL 10^3/uL (1.00-3.00) Absolute Monos (auto) 0.63 10^3/uL 10^3/uL (0.30-0.80) Absolute Eos (auto) 0.07 10^3/uL 10^3/uL (0.03-0.40) Absolute Basos (auto) 0.03 10^3/uL 10^3/uL (0.02-0.10) Absolute Nucleated RBC 0.00 10^3/uL 10^3/uL (0-0.01) Immature Gran % 0.1 % % (0.0-1.1) Immature Gran # 0.01 10^3/uL 10^3/uL (0.00-0.10) Sodium Potassium Chloride Carbon Dioxide Anion Gap BUN Creatinine Estimated GFR Glucose Calcium Total Bilirubin Conjugated Bilirubin Unconjugated Bilirubin AST ALT Alkaline Phosphatase Creatine Kinase POC Troponin I Total Protein Albumin Lipase TSH Urine Color Urine Appearance Urine pH Ur Specific [place] Urine Protein Urine Ketones Urine Blood Urine Nitrate Urine Bilirubin Urine Urobilinogen Ur Leukocyte Esterase Urine RBC Urine WBC Ur Epithelial Cells Urine Glucose Point of Care Test Results: Chemistry 03/12/18 13:49 POC Troponin I 0.00 ng/mL ng/mL (0.00-0.08) Departure - Departure Disposition: Home, Routine, Self-Care Clinical Impression: Schizophrenia Condition: Good Instructions: Schizophrenia (ED) Additional Instructions: Continue medications. Follow up with Dr. Escoto and [facility]. Return for worsening symptoms. Referrals: Rodger Escoto MD [Primary Care Provider] - As per Instructions
--- NOTE | 2018-03-12 13:32 | CPEKG ---
Heart Rate: 73 RR Interval: 822 P-R Interval: 156 QRSD Interval: 96 QT Interval: 388 QTC Interval: 428 P [place]: 64 QRS [place]: 70 T Wave [place]: 22 EKG Severity - NORMAL ECG - EKG Impression: SINUS RHYTHM Electronically Signed By: Ricardo Contreras 12-Mar-2018 15:47:00
[2018-03-12 13:40] LABS: PLATELET COUNT 226 10^3/uL (150-400)
[2018-03-12 14:04] LABS: CREATINE KINASE 69 IU/L (0-224)
[2018-03-12 14:35] VITALS: BP 111/72
--- NOTE | 2018-03-12 15:34 | ASMTLCPROG ---
Notes Note: Notes: TLC asked to consult with Pt and his family who have brought Pt to the hospital due to concerns of side effects from Risperdol which he has taken for 2 weeks. They share that he now has had shortness of breadth and restlessness for 2 days.. His step-mother mentioned "delusions". Pt was prescribed Cogentin, but stopped this 4 days ago. Clinician met with family. FOP expressed disappointment that clinician was not a psychiatrist. Step-mother clarified that what she referred to as delusions and in the mtg as "tactile hallucinations" were attempts to describe Pt feeling as if a current was going up and down his skin. The side effects of Risperdol were reviewed as well as the side effects of cogentin. Throughout mtg Pt appeared stiff, flat and continually paced. He was able to answer questions in a linear manner, but otherwise did not participate. Family reported that they had made contact with [facility] and are hopeful of gaining a psychiatrist for their son later this week. Clinician recommended that with restarting the Cogentin, if relief was not seen over the next couple days that they contact his PCP to see if he could reevaluate medications. Date Signed: 03/12/2018 03:34 PM Electronically Signed By:Sadia Leiva
== END 2018-03-12 15:17 | disposition home or self-care (01) ==
DX: F20.9 Schizophrenia, unspecified (principal)
CPT/HCPCS: 84484-PO